=== PATIENT | male | born 1965 | race Caucasian/White ===

== ENCOUNTER 2021-09-11 07:42 | Outpatient (CLI) | payer OTHER, SELFPAY ==
--- NOTE | 2021-09-11 08:00 | CRLHL7_ITS ---
For Patients: As a result of the Century Cures Act, medical imaging exams and procedure reports are released immediately into your electronic medical record. You may view this report before your referring provider. If you have questions, please contact your health care provider. Indication: Cancer follow-up Technique: Post contrast CT chest. 75 cc Isovue 370 intravenous contrast. Please note that all CT scans at this facility use dose modulation, iterative reconstruction, and/or weight-based dosing when appropriate to reduce radiation dose to as low as reasonably achievable. Comparison: 06/11/2021, 12/05/2020, 06/25/2019 Findings: Increased parenchymal densities within the left lung base containing a few air bronchograms which obscure the underlying nodular densities seen previously. Postop changes right hemithorax. Stable appearance of the mediastinum with upper limits normal mediastinal and bilateral hilar lymph nodes. Calcified granulomas in the spleen. Simple cyst left kidney. No fracture. Visualized thyroid normal. Impression: Increased ground-glass/consolidative densities within the left lung base which obscures the previously noted nodules, possibly representing post therapy change. Stable upper limits normal/mildly prominent mediastinal/bilateral hilar lymph nodes. Please note that all CT scans at this facility use dose modulation, iterative reconstruction, and/or weight-based dosing when appropriate to reduce radiation dose to as low as reasonably achievable. Dictated by Haim Olivarez MD @ 09/11/2021 1:20:42 PM (Electronically Signed)
== END 2021-09-11 07:43 | disposition home or self-care (01) ==
LOC: CT 07:43
PROVIDERS: PCP Family Medicine; Visit Provider Internal Medicine Hematology & Oncology
DX: C34.11 Malignant neoplasm of upper lobe, right bronchus or lung (principal)
CPT/HCPCS: 71260; 80053; 85025; Q9967

== ENCOUNTER 2021-09-16 13:42 | Outpatient (RCR) | payer OTHER, SELFPAY ==
--- NOTE | 2021-09-29 12:42 | ONC.NURNOTE ---
PA request sent from [facility] global technical writer unable to complete on covermymeds and called the # provided at [place] [phone] global technical writer was told that a PA is in place through 09/18/22 and no further action is needed
== END 2021-09-27 23:59 | disposition home or self-care (01) ==
LOC: CCIC 13:42
PROVIDERS: PCP Family Medicine; Visit Provider Internal Medicine Hematology & Oncology
DX: C34.90 Malignant neoplasm of unspecified part of unspecified bronchus or lung (principal); R06.00 Dyspnea, unspecified; K76.0 Fatty (change of) liver, not elsewhere classified; E66.9 Obesity, unspecified
CPT/HCPCS: 99213; 99215

== ENCOUNTER 2021-12-10 12:18 | Outpatient (CLI) | payer OTHER, SELFPAY ==
--- NOTE | 2021-12-10 15:30 | CRLHL7_ITS ---
For Patients: As a result of the Century Cures Act, medical imaging exams and procedure reports are released immediately into your electronic medical record. You may view this report before your referring provider. If you have questions, please contact your health care provider. CLINICAL HISTORY: Right-sided lung cancer status post right lower lobectomy. TECHNIQUE: Following IV injection of 33-nzcmxs-4-deoxyglucose (FDG) and a standard uptake period of approximately 60 minutes, a non-contrast CT scan followed by a PET scan were acquired along the length of the body from the mid portion of the head to the mid thighs. The non-contrast CT was used for anatomic localization and photon attenuation correction of the PET scan. Blood Glucose Level (mg/dL): 98 FDG Dose (mCi): 11.9 COMPARISON: Chest CT scan dated 11 June 2021. PET-CT scans dated 29 May 2020 and 06 March 2020. FINDINGS: Head/Neck: No abnormal activity identified in the head and neck. Chest: No mediastinal or hilar adenopathy. No axillary adenopathy. The lungs show right lower lobectomy changes. Irregular airspace opacity in the midportion of the left lower lobe and the lingula measures approximately 6.0 x 4.4 cm and shows increased density compared to the previous CT scan, SUV max 2.8. No other focal pulmonary opacities. No pneumothorax. Abdomen/Pelvis: No focal abnormalities identified in the visualized portions of the liver, spleen, pancreas, adrenal glands, and kidneys. No hydronephrosis. The GI tract is incompletely distended but shows no gross abnormalities. No retroperitoneal, pelvic sidewall, or mesenteric adenopathy. Mild atherosclerotic vascular calcifications. Bones: No abnormal skeletal activity identified. IMPRESSION: 1. Airspace opacity in the left lower lobe and lingula shows increasing density since the previous CT scan and may represent a lung cancer. 2. No metastatic disease identified. Dictated by German Nam MD @ 12/18/2021 3:57:10 PM (Electronically Signed)
== END 2021-12-10 12:19 | disposition home or self-care (01) ==
PROVIDERS: PCP Family Medicine; Visit Provider Internal Medicine Hematology & Oncology
DX: C34.11 Malignant neoplasm of upper lobe, right bronchus or lung (principal)
CPT/HCPCS: 78815; A9552

== ENCOUNTER 2022-03-26 07:49 | Outpatient (CLI) | payer OTHER, SELFPAY ==
--- NOTE | 2022-03-26 08:00 | CRLHL7_ITS ---
For Patients: As a result of the Century Cures Act, medical imaging exams and procedure reports are released immediately into your electronic medical record. You may view this report before your referring provider. If you have questions, please contact your health care provider. INDICATION: Lung cancer. Right lower lobectomy. Follow-up. TECHNIQUE: Contrast-enhanced chest CT. 95 cc nonionic Isovue-370 administered. COMPARISON: Chest CT September 11, 2021. Correlation is made with a PET/CT scan December 10, 2021. FINDINGS: When compared to the prior chest CT September 11, 2021 the consolidative infiltrates or atelectasis within the left lower lobe of the lung are less dense but not entirely absent and may in fact be post treatment in nature versus a slowly resolving infectious or inflammatory process. No mass lesions nodule within the left lung. Postsurgical change from a right lower lobectomy and right hemithoracic lymphadenectomy with associated volume loss and pleural thickening. No evidence for recurrent or metastatic disease. No lymphadenopathy. Normal caliber thoracic aorta. Coronary artery calcification. Normal adrenal glands. No splenomegaly. The included skeleton is negative for lytic or blastic metastatic disease. IMPRESSION: 1. Postsurgical change from a right lower lobectomy and right thoracic lymphadenectomy with associated volume loss and chronic pleural thickening. 2. Partial but incomplete clearing of a left lower lobe infiltrate or atelectasis. This may be on the basis of post treatment type change. 3. Minimal coronary artery calcification. Please note that all CT scans at this facility use dose modulation, iterative reconstruction, and/or weight-based dosing when appropriate to reduce radiation dose to as low as reasonably achievable. Dictated by Jimmie Vicente MD @ 03/26/2022 10:04:47 AM (Electronically Signed)
[2022-03-26 08:14] LABS: Basophils Absolute Auto 0.02 K/uL (0.00-0.30); Basophils Percent Auto 0.3 % (0.0-3.0); Eosinophils Absolute Auto 0.09 K/uL (0.00-0.50); Eosinophils Percent Auto 1.5 % (0.0-7.0); Hematocrit 45.2 % (37.0-53.0); Hemoglobin* 15.6 gm/dL (13.5-17.5); Immature Granulocytes Abs Auto 0.01 K/uL (0.00-0.30); Immature Granulocytes Pct Auto 0.2 %; Mean Corpuscular HGB Conc 35 gm/dL (32-36); Mean Corpuscular Hemoglobin 33 pg (26-34); Mean Corpuscular Volume 94 fL (80-100); Monocytes Percent Auto 9.7 % (0.0-11.0); Neutrophils Absolute Auto 4.42 K/uL (1.7-7.0); Neutrophils Percent Auto 71.3 % (42.0-72.0); Platelet Count* 227 K/uL (140-440); RDW Coefficient of Variation % 12.5 % (11.5-15.5); Red Blood Count 4.79 m/uL (4.30-5.90); White Blood Count* 6.19 K/uL (4.50-11.00)
[2022-03-26 08:16] LABS: Slide Review Reflex No
[2022-03-26 08:31] LABS: Albumin* 4.2 g/dL (3.3-5.0); Chloride* 101 mmol/L (96-114); Sodium* 136 mmol/L (135-149)
[2022-03-26 08:32] LABS: Potassium* 3.8 mmol/L (3.6-5.1)
[2022-03-26 08:34] LABS: Alanine Aminotransferase* 20 U/L (4-50); Alkaline Phosphatase* 79 U/L (40-150); Aspartate Amino Transferase* 26 U/L (12-35); Blood Urea Nitrogen* 15 mg/dL (7-30); Carbon Dioxide* 29 mmol/L (20-32); Creatinine* 0.9 mg/dL (0.5-1.5); Estimated Glomerular Filt Rate 99 ml/min; Glucose* 118 mg/dL (60-115)
== END 2022-03-26 07:50 | disposition home or self-care (01) ==
LOC: CT 07:49
PROVIDERS: PCP Family Medicine; Visit Provider Internal Medicine Hematology & Oncology
DX: C34.90 Malignant neoplasm of unspecified part of unspecified bronchus or lung (principal); I25.10 Atherosclerotic heart disease of native coronary artery without angina pectoris
CPT/HCPCS: 36415; 71260; 80053; 85025; Q9967

== ENCOUNTER 2022-04-01 09:00 | Outpatient (RCR) | payer OTHER, SELFPAY ==
[2021-12-23 09:39] LABS: Basophils Absolute Auto 0.01 K/uL (0.00-0.30); Basophils Percent Auto 0.1 % (0.0-3.0); Eosinophils Absolute Auto 0.11 K/uL (0.00-0.50); Eosinophils Percent Auto 1.4 % (0.0-7.0); Hematocrit 45.2 % (37.0-53.0); Hemoglobin* 15.8 gm/dL (13.5-17.5); Immature Granulocytes Abs Auto 0.01 K/uL (0.00-0.30); Lymphocytes Percent Auto 11.2 % (20-44); Mean Corpuscular HGB Conc 35 gm/dL (32-36); Mean Corpuscular Hemoglobin 33 pg (26-34); Mean Corpuscular Volume 94 fL (80-100); Monocytes Percent Auto 9.6 % (0.0-11.0); Neutrophils Percent Auto 77.6 % (42.0-72.0); Platelet Count* 224 K/uL (140-440); RDW Coefficient of Variation % 12.7 % (11.5-15.5); Red Blood Count 4.83 m/uL (4.30-5.90); White Blood Count* 8.02 K/uL (4.50-11.00)
[2021-12-23 09:48] LABS: Slide Review Reflex No
[2021-12-23 09:53] LABS: Albumin* 4.5 g/dL (3.3-5.0); Chloride* 103 mmol/L (96-114); Sodium* 139 mmol/L (135-149)
[2021-12-23 09:54] LABS: Potassium* 3.6 mmol/L (3.6-5.1)
[2021-12-23 09:56] LABS: Alkaline Phosphatase* 99 U/L (40-150); Aspartate Amino Transferase* 24 U/L (12-35); Bilirubin Total* 0.7 mg/dL (0.1-1.5); Carbon Dioxide* 26 mmol/L (20-32); Creatinine* 0.9 mg/dL (0.5-1.5); Estimated Glomerular Filt Rate 99 ml/min; Total Protein* 7.1 g/dL (6.0-8.3)
[2021-12-23 09:57] LABS: Alanine Aminotransferase* 21 U/L (4-50); Blood Urea Nitrogen* 12 mg/dL (7-30); Calcium* 9.3 mg/dL (8.4-10.6); Glucose* 116 mg/dL (60-115)
--- NOTE | 2021-12-25 12:36 | ONC.NURNOTE ---
Script for Vamsiotrif faxed to [facility].
== END 2022-06-21 23:59 | disposition home or self-care (01) ==
LOC: CCIC 09:00
PROVIDERS: Internal Medicine Hematology & Oncology; PCP Family Medicine; Referring Provider Family Medicine; Visit Provider Nurse Practitioner Family
DX: C34.91 Malignant neoplasm of unspecified part of right bronchus or lung (principal); K76.0 Fatty (change of) liver, not elsewhere classified; E66.9 Obesity, unspecified
CPT/HCPCS: 36415; 80053; 85025; 99212; 99213; 99214

== ENCOUNTER 2022-05-03 09:07 | Outpatient (CLI) | payer OTHER, SELFPAY ==
--- NOTE | 2022-05-03 10:35 | W.ANESCHARGE ---
Anesthesia Charges Start Date/Time Anesthesia Start Date: 05/03/22 Anesthesia Start Time: 10:10 Stop Date/Time Anesthesia Stop Date: 05/03/22 Anesthesia Stop Time: 10:33
--- NOTE | 2022-05-03 10:39 | W.ANESCHARGE ---
Anesthesia Charges Start Date/Time Anesthesia Start Date: 05/03/22 Anesthesia Start Time: 10:10 Stop Date/Time Anesthesia Stop Date: 05/03/22 Anesthesia Stop Time: 10:33
== END 2022-05-03 09:08 | disposition home or self-care (01) ==
LOC: OP CLINIC 09:07
PROVIDERS: PCP Family Medicine; Visit Provider Internal Medicine Gastroenterology
DX: Z12.11 Encounter for screening for malignant neoplasm of colon (principal); Z86.010 Personal history of colon polyps
CPT/HCPCS: 00812; 45378; J2704

== ENCOUNTER 2022-08-30 12:11 | Outpatient (CLI) | payer OTHER, SELFPAY | END 2022-08-30 12:12 | disposition home or self-care (01) | LOC: RAD 12:12 | PROVIDERS: PCP Family Medicine; Visit Provider Internal Medicine Hematology & Oncology | DX: C34.90 Malignant neoplasm of unspecified part of unspecified bronchus or lung (principal) | CPT/HCPCS: 93306 ==

== ENCOUNTER 2022-11-11 14:01 | Outpatient (CLI) | payer OTHER, SELFPAY ==
--- NOTE | 2022-11-11 14:45 | CRLHL7_ITS ---
For Patients: As a result of the 21st Century Cures Act, medical imaging exams and procedure reports are released immediately into your electronic medical record. You may view this report before your referring provider. If you have questions, please contact your health care provider. EXAM: PET-CT SKULL BASE TO THIGH CLINICAL INFORMATION: 57-yo male with metastatic lung cancer. Prior right middle lobectomy (2012 and right lower lobectomy these 1008). Prior radiation therapy completed 08/11/2022. On Osimertinib. Patient is referred for further characterization. TECHNIQUE: Radiopharmaceutical: 10.7 mCi of 18F-FDG Intravenous injection site: LAC Uptake time: 60 minutes Blood glucose level at the time of injection: 84 mg/dL Field of view: Skull base to mid-thighs CT protocol: The low-dose, free-breathing, noncontrast CT performed as part of this study is designed for the purposes of attenuation correction and lesion localization, and it is neither sufficient, nor it should be substituted for diagnostic purposes. COMPARISON: PET-CT 07/08/2022. CT chest 03/26/2022. FINDINGS: Physiologic background liver standardized uptake value (SUV mean and SUV max) reported for comparison between PET studies: 3.5 and 5.2. Visualized head and neck: Physiologic uptake in the visualized portions of the brain. Retention cyst/polyp left maxillary sinus. Head and neck lymph nodes: Decreased uptake in a previously avid left level 3 lymph node. Mild uptake within nonenlarged bilateral cervical chain lymph nodes is nonspecific, possibly reactive/inflammatory. For example left level 2 lymph node, SUV max 2.2. Left level 3 lymph SUV max 1.8. Previously 4.1. Lungs: Prior right chest thoracotomy with right middle lobe and right lower lobectomy. No abnormal right lung uptake. Similar left lower lobe post treatment changes with a residual bandlike parenchymal opacity in the posterolateral left base and mild uptake, SUV max 2.8 (fused image 116). Previously 3.8. New adjacent nodular opacities anterior left upper lobe with very mild uptake. For example: Anterior left upper lobe opacity, 0.8 cm, SUV max 1.8 (fused image 84). Adjacent nodular opacity, 0.6 cm, SUV max 1.6. Nonspecific, potentially inflammatory. Attention on follow-up. Thoracic lymph nodes: Variable mild uptake within nonenlarged mediastinal lymph nodes. Increased uptake in a small left posterior perihilar lymph node and nonenlarged bilateral axillary lymph nodes. For example: Left posterior perihilar jennifer uptake, SUV max 4.8. Previously 3.9. Right axillary lymph node, 0.8 cm short axis, SUV max 3.5. Previously 1.5. Left axillary lymph node, 0.7 cm short axis, SUV max 3.2. Previously 2.3. Other chest findings: Scattered coronary vascular calcifications. Hepatobiliary: No abnormal uptake. Spleen/pancreas/adrenal glands: No abnormal uptake. No splenomegaly. Benign splenic calcifications. Kidneys and bladder: No abnormal uptake or obstruction. Partially distended bladder. Bowel and peritoneum: No suspicious gastric or proximal small bowel uptake. Areas of uptake in relatively decompressed distal small bowel and throughout the length of the colon including the lower anal canal demonstrate no obvious noncontrast CT abnormality. Nonspecific, possibly reactive/inflammatory, physiologic or related to medication use (i.e. Metformin). Mild colonic diverticulosis. Pelvic organs: Similar mild prostate enlargement. No abnormal uptake. Abdominopelvic lymph nodes: No new hypermetabolic abdominopelvic lymph nodes. Musculoskeletal, soft tissues, skin: No new or suspicious tracer avid osseous lesions. Decreased uptake and mild sclerosis at sites of previously avid skeletal lesions involving the left anterior 1st and lateral 2nd rib, posterior spinous process of T12 and right L5 superior articular facet. For example: Left anterior 1st rib uptake, SUV max 2.8. Previously 9.5. Posterior T12 spinous process uptake, SUV max 2.4. Previously 2.4. Right L5 articular facet, SUV max 2.3. Previously 4.8. Other: Degenerative type uptake within the shoulders and spine.Scattered aortoiliac atherosclerotic vascular calcifications. Small fat containing umbilical hernia. IMPRESSION: 1. Prior hs thoracotomy with right middle lobe and right lobe upper lobectomy. No suspicious right lung uptake. 2. Post treatment changes of the left lung with similar bandlike parenchymal opacity in the posterior lateral left lower lobe with mildly decreased uptake. New adjacent nodular opacities anterior left apex with very mild uptake are nonspecific, possibly inflammatory. Attention on follow-up. 3. Decreased uptake at sites of previously evident skeletal metastases involving the left 1st and 2nd rib, posterior spinous process of T12 and superior articular facet of L5. No new aggressive, lytic or expansile osseous lesions with uptake. 4. Variable uptake within nonenlarged mediastinal lymph nodes with mildly increased left posterior perihilar uptake and bilateral axillary uptake considered nonspecific, possibly reactive/inflammatory. Attention on follow-up. 5. No distant sites of tracer avid disease in the neck, solid organs of the upper abdomen or abdominopelvic lymph nodes. 6. Other nonacute findings as detailed in the body of the report. Dictated by Jj Young MD @ 11/15/2022 11:40:20 PM (Electronically Signed)
== END 2022-11-11 14:02 | disposition home or self-care (01) ==
LOC: RAD 14:01
PROVIDERS: PCP Family Medicine; Visit Provider Internal Medicine Hematology & Oncology
DX: C34.11 Malignant neoplasm of upper lobe, right bronchus or lung (principal)
CPT/HCPCS: 78815; A9552

== ENCOUNTER 2023-01-10 10:15 | Outpatient (RCR) | payer OTHER, SELFPAY ==
[2022-07-08 13:05] LABS: Basophils Absolute Auto 0.02 K/uL (0.00-0.30); Basophils Percent Auto 0.4 % (0.0-3.0); Eosinophils Absolute Auto 0.12 K/uL (0.00-0.50); Eosinophils Percent Auto 2.2 % (0.0-7.0); Hematocrit 44.9 % (37.0-53.0); Hemoglobin* 15.7 gm/dL (13.5-17.5); Immature Granulocytes Abs Auto 0.01 K/uL (0.00-0.30); Immature Granulocytes Pct Auto 0.2 %; Lymphocytes Absolute Auto 1.11 K/uL (0.90-2.90); Lymphocytes Percent Auto 20.2 % (20-44); Mean Corpuscular HGB Conc 35 gm/dL (32-36); Mean Corpuscular Hemoglobin 32 pg (26-34); Mean Corpuscular Volume 92 fL (80-100); Monocytes Percent Auto 9.1 % (0.0-11.0); Neutrophils Absolute Auto 3.73 K/uL (1.7-7.0); Neutrophils Percent Auto 67.9 % (42.0-72.0); Platelet Count* 215 K/uL (140-440); RDW Coefficient of Variation % 12.7 % (11.5-15.5); Red Blood Count 4.88 m/uL (4.30-5.90); White Blood Count* 5.49 K/uL (4.50-11.00)
[2022-07-08 13:07] LABS: Slide Review Reflex No
[2022-07-08 13:36] LABS: Chloride* 105 mmol/L (96-114)
[2022-07-08 13:37] LABS: Albumin* 4.3 g/dL (3.3-5.0); Potassium* 3.9 mmol/L (3.6-5.1); Sodium* 138 mmol/L (135-149)
[2022-07-08 13:39] LABS: Carbon Dioxide* 27 mmol/L (20-32); Creatinine* 0.8 mg/dL (0.5-1.5); Estimated Glomerular Filt Rate 102 ml/min
[2022-07-08 13:40] LABS: Alanine Aminotransferase* 21 U/L (4-50); Alkaline Phosphatase* 87 U/L (40-150); Aspartate Amino Transferase* 26 U/L (12-35); Bilirubin Total* 1.2 mg/dL (0.1-1.5); Blood Urea Nitrogen* 11 mg/dL (7-30); Glucose* 101 mg/dL (60-115); Total Protein* 7.1 g/dL (6.0-8.3)
[2022-07-18 11:13] LABS: Albumin 3.96 g/dL (3.75-5.01); Alpha 1 Globulin 0.29 g/dL (0.19-0.46); Alpha 2 Globulin 0.61 g/dL (0.48-1.05); Total Protein, Serum 6.5 g/dL (6.3-8.2)
--- NOTE | 2022-08-13 11:17 | ONC.NURNOTE ---
Addendum entered by Liliya Rico RN 08/20/22 10:55: [facility] does not have access to Tagrisso RX was sent to [facility] STEVAN cmpleted, signed by Dr Villarreal and faxed back to [facility] at [phone] [facility] is [facility] [phone] Addendum entered by Liliya Rico RN 08/17/22 16:27: [facility] back after Dr Villarreal signs Original Note: New RX received from Dr Villarreal for osimertinib 80 mg tabs, one daily disp #30 1 refill faxed to [facility] [phone] order for EKG faxed to [facility] [place]nurse scheduling at [phone]
--- NOTE | 2022-08-23 11:28 | ONC.NURNOTE ---
PA approved for Tagrisso 08/20/22-08/21/23 Jarrod CALLES# [id number] MF
--- NOTE | 2022-08-23 12:07 | ONC.NURNOTE ---
Re Tagrisso, and drug interactions Kwasi contacted his PCP about cardiac interactions between Tagrisso and Effexor patient will be tapering off the effexor over the next week per PCP recommendation he is going to be monitored by PCP after stopping effexor Copay for Tagrisso is $30/month Discussed administration plan to order drug after labs/Echo/EKG reviewed by Dr Villarreal target start date is 09/06/22 will need labs/follow up appts made once he starts Tagrisso
[2022-08-30 12:45] LABS: Basophils Absolute Auto 0.01 K/uL (0.00-0.30); Basophils Percent Auto 0.2 % (0.0-3.0); Eosinophils Absolute Auto 0.15 K/uL (0.00-0.50); Eosinophils Percent Auto 3.2 % (0.0-7.0); Hematocrit 44.2 % (37.0-53.0); Hemoglobin* 15.5 gm/dL (13.5-17.5); Immature Granulocytes Abs Auto 0.01 K/uL (0.00-0.30); Immature Granulocytes Pct Auto 0.2 %; Lymphocytes Absolute Auto 1.04 K/uL (0.90-2.90); Lymphocytes Percent Auto 21.9 % (20-44); Mean Corpuscular HGB Conc 35 gm/dL (32-36); Mean Corpuscular Hemoglobin 32 pg (26-34); Mean Corpuscular Volume 92 fL (80-100); Monocytes Percent Auto 10.7 % (0.0-11.0); Neutrophils Absolute Auto 3.03 K/uL (1.7-7.0); Neutrophils Percent Auto 63.8 % (42.0-72.0); Platelet Count* 196 K/uL (140-440); RDW Coefficient of Variation % 12.7 % (11.5-15.5); Red Blood Count 4.79 m/uL (4.30-5.90); White Blood Count* 4.75 K/uL (4.50-11.00)
[2022-08-30 12:48] LABS: Slide Review Reflex No
[2022-08-30 12:58] LABS: Albumin* 4.3 g/dL (3.3-5.0); Chloride* 103 mmol/L (96-114)
[2022-08-30 12:59] LABS: Potassium* 3.7 mmol/L (3.6-5.1); Sodium* 138 mmol/L (135-149)
[2022-08-30 13:01] LABS: Alkaline Phosphatase* 96 U/L (40-150); Aspartate Amino Transferase* 24 U/L (12-35); Bilirubin Total* 0.8 mg/dL (0.1-1.5); Blood Urea Nitrogen* 13 mg/dL (7-30); Carbon Dioxide* 26 mmol/L (20-32); Creatinine* 0.8 mg/dL (0.5-1.5); Est. Creatinine Clearance* 96.19; Estimated Glomerular Filt Rate 102 ml/min; Total Protein* 7.2 g/dL (6.0-8.3)
[2022-08-30 13:02] LABS: Alanine Aminotransferase* 21 U/L (4-50); Calcium* 9.2 mg/dL (8.4-10.6); Glucose* 114 mg/dL (60-115)
--- NOTE | 2022-09-08 11:02 | ONC.NURNOTE ---
Addendum entered by Liliya Rico RN 09/16/22 11:57: Follow up Tagrisso: reports 3-4 mouth sores that have developed over the past 3 days- he was using an Oral B oral rinse- data analyst report writer suggested that he stop the rinse (which was not helping) and use either baking soda or salt ( pinch -1/4 tsp) dissolved in 8 oz glass of water eating and drinking well fatigue more noticeable since starting Tagrisso arthralgias in the back, bilat hips,bilat elbows and knees have improved mary was using Tylenol and Ibuprofen alternating doses throughout the day to manage arthralgias until yesterday joint pain has improved and he no longer needs to medicate denies frequent or loose stool denies rash or change in breathing Original Note: New start Tagrisso follow up: Mary started once daily TAgrisso, taking at 08 with breakfast reports more fatigue as only notable symptom denies any loose stools, or change in breathing report some arthalgias- patient says may be related to walk from yesterday Mary stopped his effexor about 10 days after noted that there is a major drug interaction between tagrisso and effexor- PCP monitoring patient, but Mary states he is doing well since effexor stopped Mary has questions about monitoring L5 on next imaging- he will discuss with Dr Villarreal at next appt
--- NOTE | 2022-09-21 15:24 | ONC.NURNOTE ---
Addendum entered by Sabi Nova RN 09/24/22 14:05: Left message on patient's voicemail to call and let us know how his mouth is doing. Original Note: Follow up of mouth sores- reports that it is a little better with the magic mouth wash noted redness like a cold sore, inside of upper lip, and back corner of his mouth eating and drinking with some discomfort Plan to reassess on - so can follow up with Dr Villarreal- in case any dose adjustments are required until his mouth heals
[2022-10-05 08:50] LABS: Basophils Absolute Auto 0.01 K/uL (0.00-0.30); Basophils Percent Auto 0.2 % (0.0-3.0); Eosinophils Absolute Auto 0.14 K/uL (0.00-0.50); Hematocrit 44.3 % (37.0-53.0); Hemoglobin* 15.1 gm/dL (13.5-17.5); Immature Granulocytes Abs Auto 0.01 K/uL (0.00-0.30); Immature Granulocytes Pct Auto 0.2 %; Lymphocytes Percent Auto 19.7 % (20-44); Mean Corpuscular HGB Conc 34 gm/dL (32-36); Mean Corpuscular Hemoglobin 32 pg (26-34); Mean Corpuscular Volume 94 fL (80-100); Monocytes Percent Auto 9.9 % (0.0-11.0); Platelet Count* 171 K/uL (140-440); RDW Coefficient of Variation % 12.7 % (11.5-15.5); Red Blood Count 4.74 m/uL (4.30-5.90); White Blood Count* 4.63 K/uL (4.50-11.00)
[2022-10-05 08:54] LABS: Slide Review Reflex No
[2022-10-05 09:01] LABS: Albumin* 4.3 g/dL (3.3-5.0)
[2022-10-05 09:02] LABS: Chloride* 104 mmol/L (96-114); Potassium* 3.6 mmol/L (3.6-5.1); Sodium* 138 mmol/L (135-149)
[2022-10-05 09:04] LABS: Bilirubin Total* 0.8 mg/dL (0.1-1.5); Creatinine* 1.2 mg/dL (0.5-1.5); Est. Creatinine Clearance* 64.13; Estimated Glomerular Filt Rate 70 ml/min
[2022-10-05 09:05] LABS: Alanine Aminotransferase* 18 U/L (4-50); Alkaline Phosphatase* 78 U/L (40-150); Aspartate Amino Transferase* 24 U/L (12-35); Blood Urea Nitrogen* 12 mg/dL (7-30); Calcium* 9.1 mg/dL (8.4-10.6); Carbon Dioxide* 28 mmol/L (20-32); Glucose* 130 mg/dL (60-115); Total Protein* 6.9 g/dL (6.0-8.3)
[2022-10-05 10:16] VITALS: BP 148/88
--- NOTE | 2022-10-13 11:43 | ONC.NURNOTE ---
Follow up call on Tagrisso and side effects Mouth sores have resolved joint and muscle aches have improved since dosing every other day although the muscle aches continue, Kwasi is staying active and is comfortable with his current status
--- NOTE | 2022-10-26 11:32 | ONC.NURNOTE ---
Addendum entered by Liliya Rico RN 10/27/22 13:25: PA needed to be resubmitted verbally with [employer]- Covermymeds did not recognize that a new PA was needed for 40ng dose PA approved for 10/27/22-10/28/23 Original Note: PA completed for 40 mg dose of Tagrisso via covermymeds on 10/25/22
[2022-11-11 14:35] LABS: Basophils Absolute Auto 0.01 K/uL (0.00-0.30); Basophils Percent Auto 0.2 % (0.0-3.0); Eosinophils Percent Auto 1.8 % (0.0-7.0); Hematocrit 44.1 % (37.0-53.0); Hemoglobin* 15.2 gm/dL (13.5-17.5); Lymphocytes Percent Auto 18.5 % (20-44); Mean Corpuscular HGB Conc 35 gm/dL (32-36); Mean Corpuscular Hemoglobin 32 pg (26-34); Mean Corpuscular Volume 92 fL (80-100); Monocytes Percent Auto 9.9 % (0.0-11.0); Neutrophils Percent Auto 69.6 % (42.0-72.0); Platelet Count* 123 K/uL (140-440); RDW Coefficient of Variation % 12.6 % (11.5-15.5); Red Blood Count 4.79 m/uL (4.30-5.90); White Blood Count* 5.46 K/uL (4.50-11.00)
[2022-11-11 14:57] LABS: Chloride* 98 mmol/L (96-114)
[2022-11-11 14:58] LABS: Albumin* 4.3 g/dL (3.3-5.0); Potassium* 3.6 mmol/L (3.6-5.1); Sodium* 131 mmol/L (135-149)
[2022-11-11 15:00] LABS: Carbon Dioxide* 25 mmol/L (20-32); Est. Creatinine Clearance* 76.95; Estimated Glomerular Filt Rate 87 ml/min
[2022-11-11 15:01] LABS: Alanine Aminotransferase* 21 U/L (4-50); Alkaline Phosphatase* 82 U/L (40-150); Anion Gap 8 mEq/L (7-15); Aspartate Amino Transferase* 31 U/L (12-35); Bilirubin Total* 1.1 mg/dL (0.1-1.5); Blood Urea Nitrogen* 12 mg/dL (7-30); Calcium* 9.4 mg/dL (8.4-10.6); Glucose* 87 mg/dL (60-115); Total Protein* 7.3 g/dL (6.0-8.3)
[2022-11-11 15:42] LABS: Slide Review Reflex Yes
[2022-11-11 15:43] LABS: Slide Review Acceptable Review (Acceptable)
--- NOTE | 2022-11-24 14:33 | ONC.NURNOTE ---
MINDI Carekeyshawn- PA needed for dose change from 40 mg alternating with 80mg every other day Gregoryo
--- NOTE | 2022-11-25 12:13 | ONC.NURNOTE ---
Addendum entered by Liliya Rico RN 11/29/22 12:58: alternate dosing schedule reviewed with Dr Villarreal and Kwasi plan is to take 80mg tab 5 days a week-with days off each week New RX and PA faxed to [facility] and Jarrod Vlilalpando agrees with this plan and states understanding to plan for dosing [address] Villarreal considering to try to escalate the dose to 6 tabs/ week in 1-2 weeks and then maybe 7 tabs/week Appts next week with Dr Villarreal Original Note: Per Shanti Johns has QL of 30 tabs for 30 days, at both the 40mg and 80 mg dose #45 tabs per 30 is denied by insurance an appeal letter will be faxed to office to complete
[2023-01-10 12:31] LABS: Basophils Absolute Auto 0.01 K/uL (0.00-0.30); Basophils Percent Auto 0.2 % (0.0-3.0); Eosinophils Absolute Auto 0.08 K/uL (0.00-0.50); Eosinophils Percent Auto 1.7 % (0.0-7.0); Hematocrit 42.8 % (37.0-53.0); Hemoglobin* 14.8 gm/dL (13.5-17.5); Lymphocytes Absolute Auto 0.96 K/uL (0.90-2.90); Lymphocytes Percent Auto 20.3 % (20-44); Mean Corpuscular HGB Conc 35 gm/dL (32-36); Mean Corpuscular Hemoglobin 32 pg (26-34); Mean Corpuscular Volume 93 fL (80-100); Monocytes Percent Auto 10.6 % (0.0-11.0); Neutrophils Absolute Auto 3.18 K/uL (1.7-7.0); Neutrophils Percent Auto 67.2 % (42.0-72.0); Platelet Count* 149 K/uL (140-440); Red Blood Count 4.61 m/uL (4.30-5.90); White Blood Count* 4.73 K/uL (4.50-11.00)
[2023-01-10 12:39] LABS: Slide Review Reflex No
[2023-01-10 12:46] LABS: Albumin* 4.1 g/dL (3.3-5.0); Chloride* 105 mmol/L (96-114); Sodium* 136 mmol/L (135-149)
[2023-01-10 12:48] LABS: Creatinine* 1.1 mg/dL (0.5-1.5); Est. Creatinine Clearance* 69.95; Estimated Glomerular Filt Rate 77 ml/min
[2023-01-10 12:49] LABS: Alanine Aminotransferase* 17 U/L (4-50); Alkaline Phosphatase* 77 U/L (40-150); Anion Gap 8 mEq/L (7-15); Aspartate Amino Transferase* 37 U/L (12-35); Bilirubin Total* 0.6 mg/dL (0.1-1.5); Blood Urea Nitrogen* 18 mg/dL (7-30); Calcium* 9.1 mg/dL (8.4-10.6); Carbon Dioxide* 23 mmol/L (20-32); Glucose* 118 mg/dL (60-115); Potassium* 3.8 mmol/L (3.6-5.1); Total Protein* 6.9 g/dL (6.0-8.3)
== END 2023-01-11 23:59 | disposition home or self-care (01) ==
LOC: CCIC 10:15
PROVIDERS: Clinical Nurse Specialist; Nurse Practitioner Family; Physician Assistant; PCP Family Medicine; Referring Provider Family Medicine; Visit Provider Internal Medicine Hematology & Oncology
DX: C34.91 Malignant neoplasm of unspecified part of right bronchus or lung (principal); C79.51 Secondary malignant neoplasm of bone; M54.9 Dorsalgia, unspecified; I10 Essential (primary) hypertension
CPT/HCPCS: 36415; 80053; 84165; 85025; 99212; 99213; 99214; 99215

== ENCOUNTER 2023-01-21 07:10 | Outpatient (CLI) | payer OTHER, SELFPAY ==
--- NOTE | 2023-01-21 07:30 | PE_ITS ---
[facility] [address] [facility] [address] Phone:?[phone] Fax:?[phone] Referring Physician Information: Airam Villarreal M.D. [address] [facility] [address] Phone:?[phone] Fax:?[phone] Patient:Deann Avina D.O.B:?1965 Sex:?Male Phone:?[phone] [facility] MRN:?[id number] Exam Date:?01/21/2023 EXAM: PET/CT SCAN MID-ORBITS TO PROXIMAL THIGHS CLINICAL INFORMATION: Metastatic lung carcinoma. Prior right middle lobe and right lower lobectomy. Radiation therapy completed 08/11/2022. TECHNICAL INFORMATION: Spiral acquisition of data was obtained from the mid orbits to the proximal thighs with reconstruction of 3.75 mm thick images at 3.[address] data was used for attenuation correction. PET scanning was performed through the same anatomic range 56 minutes following administration of 12.15 mCi of 18-FDG delivered intravenously. The patient's glucose at the time of the injection was 84 mg/dL. PET, CT and PET/CT fusion images are interpreted using a computer viewing workstation. Physiologic background liver standard uptake SUV mean INTERPRETATION: Head and Neck: Chest: Prior right chest thoracotomy with right middle and lower lobectomy. No right lung nodule. Stable bandlike opacity left lung base, SUV max 2.6, previously 2.8. Stable 8 mm subpleural opacity left apex image 86, SUV max 2.4, previously 1.8. Stable appearance of nonenlarged mediastinal nodes. Left posterior parahilar node SUV max 3.68, previously 4.8, image 105. Right axillary 8mm node SUV max 3.5, stable. 7 mm left axillary node SUV max 2.6, previously 3.2. Abdomen, Pelvis and Proximal Thighs: No liver lesion is identified. The spleen, adrenal glands, pancreas, gallbladder and kidneys are unremarkable. Normal caliber abdominal aorta. No mesenteric or retroperitoneal adenopathy. No pelvic adenopathy or mass. MUSCULOSKELETAL: Relative stable sclerosis involving left anterior first and lateral second rib, SUV max first rib 2.8, previously 2.8. Stable SUV 2.4 posterior T12 spinous process. Right L5 articular facet, unchanged, SUV max 3.1. CONCLUSION: 1. Patient status post thoracotomy with right middle and right upper lobe lobectomy. No suspicious right lung uptake. 2. Post treatment changes left lung with bandlike parenchymal opacity posterior lateral left lung base. Stable nodular opacities anterior left apex, nonspecific left most likely inflammatory. Continued follow-up is suggested. 3. Stable sites of skeletal metastasis involving left first and second ribs posterior T12 spinous process, superior articular facet L5. No new osseous lesions are identified. 4. Nonenlarged mediastinal, bilateral axillary and left posterior perihilar lymph node uptake, considered nonspecific, continued follow-up is suggested. Electronically signed on 01/24/2023 10:06:00 AM by Bill Jc M.D.
== END 2023-01-21 07:11 | disposition home or self-care (01) ==
LOC: RAD 07:10
PROVIDERS: PCP Family Medicine; Visit Provider Internal Medicine Hematology & Oncology
DX: C34.11 Malignant neoplasm of upper lobe, right bronchus or lung (principal); C79.51 Secondary malignant neoplasm of bone
CPT/HCPCS: 78815; A9552

== ENCOUNTER 2023-04-28 08:00 | Outpatient (CLI) | payer OTHER, SELFPAY ==
--- NOTE | 2023-04-28 08:15 | MR_ITS ---
Patient: WELLINGTON RAMIRES Facility:?[facility] Patient ID:?[id number] Site Patient ID:?[id number]. Site :?1965 Study:?MRI-Head W/ and W/O Cont 20 CC DOATERM-04/28/2023 11:18:50 AM Ordering Physician:MAXINE HUTCHINS Final Report: INDICATION: Lung cancer TECHNIQUE: Noncontrast Sagittal T1,Axial FSE T2, Flair, DWI, post contrast axial and coronal T1W images submitted. Compared to prior study from July 27, 2022. 20 cc of dotarem gadolinium was administered intravenously. FINDINGS: Stable mild cerebral atrophy. The ventricles, sulci and gyri are of normal size, shape and contour for age and degree of atrophy. Midline structures are centrally located. No convincing evidence of suspicious intra- or extra-axial fluid collections. Stable mild patchy regions of increased T2 signal within the periventricular and subcortical white matter of both cerebral hemispheres. No regions of restricted diffusion or suspicious regions of abnormal parenchymal enhancement. IMPRESSION: 1. No radiographic evidence of acute intracranial abnormalities. 2. Stable mild cerebral atrophy. 3. Stable mild supratentorial white matter changes that are non-specific, but statistically most likely related to chronic small vessel ischemic disease. Dictated by Aj Smith MD @ 04/30/2023 7:46:33 AM Signed by:?Aj Smith MD @04/30/2023 7:46:33 AM (Electronic Signature)
--- NOTE | 2023-05-31 09:24 | W.ED.CHARTNO ---
ED Chart Note Chart Note Details Date: 05/31/23 Details: EKG dated 05/25/2023, Patient is in normal sinus rhythm, ventricular rate is 76, QT/QTC baz is 380/[address] wave changes, Assessment: QTC remained stable at 427 millisecond, patient remains in normal sinus rhythm with no acute change
== END 2023-04-28 08:01 | disposition home or self-care (01) ==
LOC: MRI 08:02
PROVIDERS: PCP Family Medicine; Visit Provider Internal Medicine Hematology & Oncology
DX: Z51.11 Encounter for antineoplastic chemotherapy (principal); G31.9 Degenerative disease of nervous system, unspecified
CPT/HCPCS: 70553; A9575

== ENCOUNTER 2023-05-26 15:02 | Outpatient (CLI) | payer OTHER, SELFPAY ==
--- NOTE | 2023-05-26 15:30 | PE_ITS ---
[facility] [address] [address] [facility] [address] Phone:?[phone] Fax:?[phone] Referring Physician Information: Airam Villarreal M.D. [address] [facility] [address] Phone:?[phone] Fax:?[phone] Patient:Deann Avina D.O.B:?1965 Sex:?Male Phone:?[phone] [facility] MRN:?[id number] Exam Date:?05/26/2023 EXAM: PET/CT SCAN MID-ORBITS TO PROXIMAL THIGHS CLINICAL INFORMATION: Metastatic non-small cell lung carcinoma. Prior right middle and lower lobectomy. Radiation treatment completion left level 2 lymph node 02/15/2023. COMPARISON:?PET CT 01/21/2023. TECHNICAL INFORMATION: Spiral acquisition of data was obtained from the mid orbits to the proximal thighs with reconstruction of 3.75 mm thick images at 3.[address] data was used for attenuation correction. PET scanning was performed through the same anatomic range 53 minutes following administration of 11.03 mCi of 18-FDG delivered intravenously. The patient's glucose at the time of the injection was 115 mg/dL. PET, CT and PET/CT fusion images are interpreted using a computer viewing workstation. SUV max liver ; BMI normalization method. INTERPRETATION: Head and Neck: No abnormal radiotracer uptake. Chest: Prior right chest thoracotomy and right middle/lower lobectomy change, stable. No right lung nodule or infiltrate. Stable bandlike opacity left lung base, SUV max 1.53. Stable 8 mm subpleural opacity left apex image 87, SUV max 2.05. Left posterior parahilar node, SUV max 2.79, previously 3.68, image 107. 8 mm right axillary node 2.07, previously 3.5 and 7 mm left axillary node SUV 1.35, previously 2.6. Abdomen, Pelvis and Proximal Thighs: No liver lesion. No biliary duct dilatation. The gallbladder, pancreas, adrenal glands, spleen and kidneys are unremarkable. Normal caliber abdominal aorta with minimal atherosclerotic calcification. No pathologic mesenteric or retroperitoneal adenopathy. MUSCULOSKELETAL: Stable sclerotic appearance of anterior left first and lateral second rib, SUV max left first rib 2.0, previously 2.8.. Posterior spinous process T12, unchanged. Right L5 articular facet, 1.91, previously 3.1. CONCLUSION: 1. Left posterior perihilar lymph node, SUV max 2.79, previously 3.68. 2. Stable post right thoracotomy changes, along with stable 8 mm subpleural opacity left apex and stable bandlike opacity left base. No new lung nodule, infiltrate or pathologic adenopathy is identified. Stable 8 mm right axillary and 7 mm left axillary node. 2. Stable sclerotic osseous metastatic lesions involving left first/second ribs, posterior T12 spinous process, right superior L5 articular facet. No new osseous lesions. Electronically signed on 05/29/2023 1:02:00 PM by Bill Jc M.D.
== END 2023-05-26 15:03 | disposition home or self-care (01) ==
LOC: RAD 15:03
PROVIDERS: PCP Family Medicine; Visit Provider Internal Medicine Hematology & Oncology
DX: C34.11 Malignant neoplasm of upper lobe, right bronchus or lung (principal); M89.9 Disorder of bone, unspecified
CPT/HCPCS: 78815; A9552

== ENCOUNTER 2023-07-07 13:00 | Outpatient (RCR) | payer OTHER, SELFPAY ==
--- NOTE | 2023-02-07 15:46 | ONC.NURNOTE ---
Instructed to hold tagrisso for the week of radiation treatments dates are 02/08, 02/10, and 02/15 Tagrisso will be held 02/08 and restart on 02/16 patient states understanding
[2023-02-07 16:16] LABS: Basophils Absolute Auto 0.02 K/uL (0.00-0.30); Basophils Percent Auto 0.4 % (0.0-3.0); Eosinophils Percent Auto 1.8 % (0.0-7.0); Hematocrit 47.3 % (37.0-53.0); Hemoglobin* 16.2 gm/dL (13.5-17.5); Immature Granulocytes Abs Auto 0.01 K/uL (0.00-0.30); Immature Granulocytes Pct Auto 0.2 %; Lymphocytes Absolute Auto 1.28 K/uL (0.90-2.90); Lymphocytes Percent Auto 23.5 % (20-44); Mean Corpuscular HGB Conc 34 gm/dL (32-36); Mean Corpuscular Hemoglobin 32 pg (26-34); Mean Corpuscular Volume 93 fL (80-100); Monocytes Percent Auto 10.5 % (0.0-11.0); Neutrophils Absolute Auto 3.47 K/uL (1.7-7.0); Neutrophils Percent Auto 63.6 % (42.0-72.0); Platelet Count* 172 K/uL (140-440); RDW Coefficient of Variation % 12.7 % (11.5-15.5); Red Blood Count 5.08 m/uL (4.30-5.90); White Blood Count* 5.45 K/uL (4.50-11.00)
[2023-02-07 16:25] LABS: Slide Review Reflex No
[2023-02-07 16:30] LABS: Albumin* 4.6 g/dL (3.3-5.0); Chloride* 103 mmol/L (96-114); Potassium* 3.8 mmol/L (3.6-5.1); Sodium* 138 mmol/L (135-149)
[2023-02-07 16:32] LABS: Creatinine* 1.1 mg/dL (0.5-1.5); Estimated Glomerular Filt Rate 77 ml/min
[2023-02-07 16:33] LABS: Alanine Aminotransferase* 17 U/L (4-50); Alkaline Phosphatase* 82 U/L (40-150); Anion Gap 9 mEq/L (7-15); Aspartate Amino Transferase* 25 U/L (12-35); Bilirubin Total* 0.8 mg/dL (0.1-1.5); Blood Urea Nitrogen* 15 mg/dL (7-30); Carbon Dioxide* 26 mmol/L (20-32); Glucose* 78 mg/dL (60-115); Total Protein* 7.6 g/dL (6.0-8.3)
[2023-02-07 16:34] LABS: Calcium* 9.8 mg/dL (8.4-10.6)
--- NOTE | 2023-02-24 12:03 | URNOTE ---
Neulasta (J2506) has been denied as it does not meet criteria. See scanned document. Pemetresed (J9323), Carboplatin (J9045),Palonosetron (J2469), Fosaprepitant (J1453) and Dexamethasone (J1100) and Cyanocobalamin (J3420) do not require prior authorization. Auth #[id number]
--- NOTE | 2023-02-25 14:33 | ONC.NURNOTE ---
Patients orders were on for March 02, but not scheduled for chemotherapy. Clinic nurse notes that a call was made to patient. Shower Attendant called patient and he notes that he would like to start next week when he is seen. Patient scheduled and pharmacy made aware.
--- NOTE | 2023-03-01 09:34 | W.ED.CHARTNO ---
ED Chart Note Chart Note Details Date: 03/01/23 Details: EKG is reviewed from 02/19/2023, 02/24/2023, compared with previous EKG from 08/30/2022 Sinus rhythm with occasional PACs, and a pattern of bigeminy is noted. No acute ST wave changes. Ventricular rate is 74, QTC QT remains stable. Assessment: Abnormal EKG with PACs in a bigeminal pattern, otherwise normal indices. Significance of which is unknown
[2023-03-02 11:08] LABS: Hematocrit 42.3 % (37.0-53.0); Hemoglobin* 14.6 gm/dL (13.5-17.5); Lymphocytes Percent Auto 9.4 % (20-44); Mean Corpuscular HGB Conc 35 gm/dL (32-36); Mean Corpuscular Hemoglobin 32 pg (26-34); Mean Corpuscular Volume 93 fL (80-100); Neutrophils Percent Auto 79.5 % (42.0-72.0); Platelet Count* 139 K/uL (140-440); Red Blood Count 4.53 m/uL (4.30-5.90); White Blood Count* 6.06 K/uL (4.50-11.00)
[2023-03-02 11:09] LABS: Basophils Absolute Auto 0.01 K/uL (0.00-0.30); Basophils Percent Auto 0.2 % (0.0-3.0); Eosinophils Absolute Auto 0.02 K/uL (0.00-0.50); Eosinophils Percent Auto 0.3 % (0.0-7.0); Monocytes Percent Auto 10.6 % (0.0-11.0)
[2023-03-02 11:19] LABS: Slide Review Reflex No
[2023-03-02 11:23] LABS: Albumin* 4.1 g/dL (3.3-5.0); Chloride* 101 mmol/L (96-114)
[2023-03-02 11:24] LABS: Potassium* 3.5 mmol/L (3.6-5.1); Sodium* 136 mmol/L (135-149)
[2023-03-02 11:26] LABS: Alanine Aminotransferase* 22 U/L (4-50); Alkaline Phosphatase* 86 U/L (40-150); Anion Gap 9 mEq/L (7-15); Aspartate Amino Transferase* 27 U/L (12-35); Bilirubin Total* 0.4 mg/dL (0.1-1.5); Blood Urea Nitrogen* 11 mg/dL (7-30); Carbon Dioxide* 26 mmol/L (20-32); Estimated Glomerular Filt Rate 87 ml/min; Glucose* 111 mg/dL (60-115); Total Protein* 6.8 g/dL (6.0-8.3)
[2023-03-02] MEDS: CYANOCOBALAMIN 1,000 MCG/ML inj 1000 MCG IM (11:55)
--- NOTE | 2023-03-04 15:00 | ONC.NURNOTE ---
STEVAN inititated for Magic Mouthwash for [employer] via covermymeds patient states that this was covered by insurance but is no longer on a formulary due to compounded medication
--- NOTE | 2023-03-08 13:38 | ONC.NURNOTE ---
Tagrisso- per mary Long will continue with Tagrisso along with chemotherapy
[2023-03-11 12:16] LABS: Basophils Absolute Auto 0.01 K/uL (0.00-0.30); Basophils Percent Auto 0.2 % (0.0-3.0); Eosinophils Absolute Auto 0.08 K/uL (0.00-0.50); Eosinophils Percent Auto 1.3 % (0.0-7.0); Hematocrit 46.5 % (37.0-53.0); Hemoglobin* 15.7 gm/dL (13.5-17.5); Immature Granulocytes Abs Auto 0.01 K/uL (0.00-0.30); Immature Granulocytes Pct Auto 0.2 %; Lymphocytes Percent Auto 16.3 % (20-44); Mean Corpuscular HGB Conc 34 gm/dL (32-36); Mean Corpuscular Hemoglobin 32 pg (26-34); Mean Corpuscular Volume 93 fL (80-100); Monocytes Percent Auto 9.4 % (0.0-11.0); Neutrophils Percent Auto 72.6 % (42.0-72.0); Platelet Count* 190 K/uL (140-440); RDW Coefficient of Variation % 12.7 % (11.5-15.5); Red Blood Count 4.99 m/uL (4.30-5.90); White Blood Count* 6.09 K/uL (4.50-11.00)
[2023-03-11 12:21] LABS: Slide Review Reflex No
[2023-03-11 12:32] LABS: Albumin* 4.6 g/dL (3.3-5.0)
[2023-03-11 12:33] LABS: Chloride* 101 mmol/L (96-114); Sodium* 138 mmol/L (135-149)
--- NOTE | 2023-03-11 12:34 | ONC.NURNOTE ---
Kwasi and here for new chemo start teaching labs repeated today antiemetics will need to be submitted by Celeste Ny APRN today- pt aware EKG monitoring for Tagresso- Dr Villarreal wants current EKG to be reviewed by stunt performer/ with a visit Kwasi has seen cardiology many years ago thru [facility]- will look for that name reviewed contents of chemo education binder self care/calling with concerns taking home antiemetics ER if fever over 100.4 discussed possible side effects of carbo/alimta PA for magic mouthwash pending started via covermymeds last week quesstions addressed and consents signed
[2023-03-11 12:35] LABS: Anion Gap 7 mEq/L (7-15); Aspartate Amino Transferase* 30 U/L (12-35); Bilirubin Total* 0.7 mg/dL (0.1-1.5); Carbon Dioxide* 30 mmol/L (20-32); Estimated Glomerular Filt Rate 87 ml/min; Total Protein* 7.5 g/dL (6.0-8.3)
[2023-03-11 12:36] LABS: Alanine Aminotransferase* 18 U/L (4-50); Alkaline Phosphatase* 68 U/L (40-150); Blood Urea Nitrogen* 18 mg/dL (7-30); Calcium* 9.6 mg/dL (8.4-10.6); Glucose* 93 mg/dL (60-115)
[2023-03-14 08:20] VITALS: BP 129/85; PULSE 72; RESP 16; TEMP 36.6; O2SAT 95
[2023-03-14] MEDS: PALONOSETRON 0.25 MG/5 ML inj IV (09:00)
[2023-03-14] MEDS: dexAMETHasone 10 MG in 0.9 % SODIUM CHLORIDE 100 ml 100 ML 404 MG IVPB (09:00)
[2023-03-14] MEDS: FOSAPREPITANT 150 MG inj 150 MG in 0.9 % SODIUM CHLORIDE 250 ml 250 ML 510 MG IVPB (09:28)
[2023-03-14] MEDS: CARBOplatin 750 MG, TUBING SECONDARY 1 EACH in 0.9 % SODIUM CHLORIDE 250 ml 250 ML 650 MG IVPB (10:33)
[2023-03-14] MEDS: SODIUM CHLORIDE 0.9 % (FLUSH) 10 ML SYRINGE IVF (15:06)
[2023-03-14] MEDS: 0.9 % SODIUM CHLORIDE 250 ml IV (15:06)
--- NOTE | 2023-03-14 15:14 | ONC.NURNOTE ---
Tolerated first treatment well. supportive. will pharmacy picking technician meds at pharmacy today. enc to call if questions or concerns. we will call him tomorrow.
--- NOTE | 2023-03-15 12:42 | ONC.NURNOTE ---
called Kwasi. He states feeling fine. no nausea. taking po. states just a little tired today. is out taking a walk now. Enc. him to call if questions or concerns. taking compazine as suggested.
--- NOTE | 2023-03-18 14:30 | ONC.NURNOTE ---
Called [facility] on file to check PA status of Magic Mouthwash. They confirm they have an active prescription for Magic Mouthwash, that the PA has come back and they have it in stock. They are mixing it now; I updated pt.
--- NOTE | 2023-03-28 15:22 | ONC.NURNOTE ---
Magic Mouthwash PA was denied by his insurance. Kwasi has been able to fill his RX however.
--- NOTE | 2023-03-30 14:18 | ONC.NURNOTE ---
Cardiology telemed visit scanned into EMR- and reviewed by Dr Villarreal
[2023-04-01 08:43] LABS: Hematocrit 40.4 % (37.0-53.0); Hemoglobin* 13.7 gm/dL (13.5-17.5); Lymphocytes Percent Auto 26.5 % (20-44); Mean Corpuscular HGB Conc 34 gm/dL (32-36); Mean Corpuscular Hemoglobin 32 pg (26-34); Mean Corpuscular Volume 95 fL (80-100); Monocytes Percent Auto 16.8 % (0.0-11.0); Neutrophils Percent Auto 53.7 % (42.0-72.0); Platelet Count* 176 K/uL (140-440); RDW Coefficient of Variation % 13.7 % (11.5-15.5); Red Blood Count 4.26 m/uL (4.30-5.90); White Blood Count* 2.68 K/uL (4.50-11.00)
[2023-04-01 08:44] LABS: Slide Review Reflex No
[2023-04-01 08:59] LABS: Albumin* 4.3 g/dL (3.3-5.0); Chloride* 103 mmol/L (96-114)
[2023-04-01 09:00] LABS: Potassium* 3.6 mmol/L (3.6-5.1); Sodium* 138 mmol/L (135-149)
[2023-04-01 09:02] LABS: Anion Gap 7 mEq/L (7-15); Aspartate Amino Transferase* 33 U/L (12-35); Bilirubin Total* 0.6 mg/dL (0.1-1.5); Carbon Dioxide* 28 mmol/L (20-32); Est. Creatinine Clearance* 76.95; Estimated Glomerular Filt Rate 87 ml/min; Total Protein* 7.3 g/dL (6.0-8.3)
[2023-04-01 09:03] LABS: Alanine Aminotransferase* 31 U/L (4-50); Alkaline Phosphatase* 94 U/L (40-150); Blood Urea Nitrogen* 16 mg/dL (7-30); Calcium* 9.1 mg/dL (8.4-10.6); Glucose* 126 mg/dL (60-115)
--- NOTE | 2023-04-04 14:42 | ONC.NURNOTE ---
Patient's charges for 03/14/2023 edited for MM.
--- NOTE | 2023-04-06 13:44 | ONC.NURNOTE ---
PET scheduled: Patient will have PET scan on 05/26/23 at 330pm. Spoke with patient and he wrote this time down and can make it. Documentation and order was faxed to [facility].
[2023-04-12 08:06] LABS: Eosinophils Absolute Auto 0.05 K/uL (0.00-0.50); Hematocrit 39.7 % (37.0-53.0); Hemoglobin* 13.9 gm/dL (13.5-17.5); Immature Granulocytes Abs Auto 0.01 K/uL (0.00-0.30); Immature Granulocytes Pct Auto 0.2 %; Lymphocytes Percent Auto 18.8 % (20-44); Mean Corpuscular HGB Conc 35 gm/dL (32-36); Mean Corpuscular Hemoglobin 33 pg (26-34); Mean Corpuscular Volume 95 fL (80-100); Monocytes Percent Auto 14.7 % (0.0-11.0); Neutrophils Absolute Auto 3.38 K/uL (1.7-7.0); Neutrophils Percent Auto 65.3 % (42.0-72.0); Platelet Count* 174 K/uL (140-440); RDW Coefficient of Variation % 14.7 % (11.5-15.5); Red Blood Count 4.19 m/uL (4.30-5.90); White Blood Count* 5.17 K/uL (4.50-11.00)
[2023-04-12 08:11] LABS: Slide Review Reflex No
[2023-04-12 08:16] LABS: Albumin* 4.6 g/dL (3.3-5.0); Chloride* 103 mmol/L (96-114); Sodium* 138 mmol/L (135-149)
[2023-04-12 08:19] LABS: Alanine Aminotransferase* 22 U/L (4-50); Alkaline Phosphatase* 75 U/L (40-150); Anion Gap 9 mEq/L (7-15); Aspartate Amino Transferase* 30 U/L (12-35); Bilirubin Total* 0.6 mg/dL (0.1-1.5); Blood Urea Nitrogen* 14 mg/dL (7-30); Carbon Dioxide* 26 mmol/L (20-32); Est. Creatinine Clearance* 76.95; Estimated Glomerular Filt Rate 87 ml/min; Glucose* 103 mg/dL (60-115); Total Protein* 7.4 g/dL (6.0-8.3)
[2023-04-12 08:20] LABS: Calcium* 9.2 mg/dL (8.4-10.6)
[2023-04-12] MEDS: dexAMETHasone 10 MG in 0.9 % SODIUM CHLORIDE 100 ml 100 ML 400 MG IVPB (09:18)
[2023-04-12] MEDS: PALONOSETRON 0.25 MG/5 ML inj IV (09:18)
[2023-04-12] MEDS: 0.9 % SODIUM CHLORIDE 250 ml IV (09:18)
[2023-04-12] MEDS: FOSAPREPITANT 150 MG inj 150 MG in 0.9 % SODIUM CHLORIDE 250 ml 250 ML 510 MG IVPB (09:37)
[2023-04-12] MEDS: CARBOplatin 750 MG, TUBING SECONDARY 1 EACH in 0.9 % SODIUM CHLORIDE 250 ml 250 ML 650 MG IVPB (10:50)
--- NOTE | 2023-04-12 13:14 | ONC.NURNOTE ---
Addendum entered by Nadja Bucio RN 04/15/23 10:01: Patient in for injection. Left arm healed well. No redness, warmth, hardness, or soreness present. Addendum entered by Nadja Bucio RN 04/13/23 08:48: Called patient to see how his wound looks. He notes no pain, no redness, swelling is gone, denies color change. He was notifed that nursing will call Tuesday, but to call with any changes ahead of that time. Original Note: Patient here for chemotherapy. Following start of carboplatin, drug noted to have infiltrated about 50ml of drug. Medication stopped and sodium thiosulfate administered once obtained, following icing. Instructed to ice area for 15 minutes every 8 hours.
--- NOTE | 2023-04-14 14:10 | URNOTE ---
Addendum entered by Sharmaine Lakhani RN 04/29/23 13:51: Received fax re: alternate site of service, facility: [facility] Date Range: 04/28/23 to 10/06/2023. Called [facility] to confirm Udenyca ([id number]). Prior Authorization is approved by [facility] for time period of 3 months to transition to an alternative setting. Auth#[id number], date range: 04/07/2023 to 07/06/2023. Per Rep Diana Oliveira (Ref# [id number]) this calvin period is still active until 07/06/2023. Transferred to Rep Yeyo (Ref# [id number]) in medical injectables who states pt will also receive this letter to start home base or alternate site of service. Addendum entered by Nalini Vincent RN 04/14/23 14:31: [facility] noted. Celeste Ny, MAAME HIV PREVENTION SPECIALIST will update pt's treatment plan for use of Udencya for next treatment on 05/03/2023. Original Note: Request received for authorization for Udenyca ([id number]). Prior Authorization is approved by [facility] for time period of 3 months to transition to an alternative setting. Auth#[id number], date range: 04/07/2023 to 07/06/2023.
[2023-04-15 09:29] VITALS: BP 124/75; PULSE 84; RESP 16; TEMP 36.4; O2SAT 92
[2023-04-15] MEDS: PEGFILGRASTIM-CBQV 6 MG/0.6 ML SYRINGE SUBCUT (09:35)
[2023-05-03 09:03] LABS: Basophils Absolute Auto 0.02 K/uL (0.00-0.30); Basophils Percent Auto 0.3 % (0.0-3.0); Eosinophils Absolute Auto 0.12 K/uL (0.00-0.50); Eosinophils Percent Auto 1.7 % (0.0-7.0); Hematocrit 39.5 % (37.0-53.0); Hemoglobin* 13.6 gm/dL (13.5-17.5); Immature Granulocytes Abs Auto 0.03 K/uL (0.00-0.30); Immature Granulocytes Pct Auto 0.4 %; Lymphocytes Percent Auto 12.6 % (20-44); Mean Corpuscular HGB Conc 34 gm/dL (32-36); Mean Corpuscular Hemoglobin 34 pg (26-34); Mean Corpuscular Volume 97 fL (80-100); Monocytes Percent Auto 12.2 % (0.0-11.0); Neutrophils Percent Auto 72.8 % (42.0-72.0); Platelet Count* 200 K/uL (140-440); Red Blood Count 4.06 m/uL (4.30-5.90); White Blood Count* 7.06 K/uL (4.50-11.00)
[2023-05-03 09:06] LABS: Slide Review Reflex No
[2023-05-03 09:17] LABS: Albumin* 4.5 g/dL (3.3-5.0); Chloride* 101 mmol/L (96-114); Potassium* 3.5 mmol/L (3.6-5.1); Sodium* 139 mmol/L (135-149)
[2023-05-03 09:19] LABS: Anion Gap 9 mEq/L (7-15); Aspartate Amino Transferase* 22 U/L (12-35); Bilirubin Total* 0.7 mg/dL (0.1-1.5); Carbon Dioxide* 29 mmol/L (20-32); Creatinine* 1.2 mg/dL (0.5-1.5); Est. Creatinine Clearance* 64.13; Estimated Glomerular Filt Rate 70 ml/min; Total Protein* 7.5 g/dL (6.0-8.3)
[2023-05-03 09:20] LABS: Alanine Aminotransferase* 18 U/L (4-50); Alkaline Phosphatase* 96 U/L (40-150); Blood Urea Nitrogen* 14 mg/dL (7-30); Calcium* 9.5 mg/dL (8.4-10.6); Glucose* 98 mg/dL (60-115)
[2023-05-03] MEDS: SODIUM CHLORIDE 0.9 % (FLUSH) 10 ML SYRINGE IVF (10:29)
[2023-05-03] MEDS: dexAMETHasone 10 MG in 0.9 % SODIUM CHLORIDE 100 ml 100 ML 420 MG IVPB (10:29)
[2023-05-03] MEDS: PALONOSETRON 0.25 MG/5 ML inj IV (10:29)
[2023-05-03] MEDS: 0.9 % SODIUM CHLORIDE 250 ml IV (10:29)
[2023-05-03] MEDS: FOSAPREPITANT 150 MG inj 150 MG in 0.9 % SODIUM CHLORIDE 250 ml 250 ML 510 MG IVPB (10:50)
[2023-05-03] MEDS: CARBOplatin 750 MG, TUBING SECONDARY 1 EACH in 0.9 % SODIUM CHLORIDE 250 ml 250 ML 650 MG IVPB (11:48)
[2023-05-04] MEDS: PEGFILGRASTIM-CBQV (Udenyca) 6 MG/0.6 ML SUBCUT (13:05)
[2023-05-04] MEDS: CYANOCOBALAMIN 1,000 MCG/ML inj 1000 MCG IM (13:05)
[2023-05-04 13:13] VITALS: BP 112/70; PULSE 81; RESP 16; TEMP 37.2; O2SAT 95
--- NOTE | 2023-05-16 12:07 | ONC.NURNOTE ---
Q 3 month EKG scheduled with house sup for next week after lab draw 05/23 around 8:45
--- NOTE | 2023-05-23 15:27 | ONC.NURNOTE ---
Christi -per Kaylyn at - PA is current for Anjel roberts bagging from [facility]- RX will need to be sent either ERx or faxed this is Kwasi's preference over self administering -Kwasi will have a 20% co-insurance payment for coming to [facility] for injection instead of self injection -per Ana M the injection charge is CPT 24764 is $22.80 -clarification needed if there is an additional handling fee from pharmacy that would factor into Kwasi's overall costs If Kwasi decides on the self injection route at home a PA is needed with [facility] and then an RX will need to be sent to [facility] not [facility]
--- NOTE | 2023-05-24 10:21 | W.ED.EKGINT ---
EKG Interpretation EKG Data Attestation: I personally reviewed and interpreted this ECG as follows: Date of EKG Tracin02/24/23 EKG interpretation date: 05/24/23 EKG interpretation time: 10:23 Prior EKG tracings: available for review Interpretation: . Rhythm continues to be sinus rhythm, PACs are noted in bigeminal pattern. QTC remains stable, at 446 milliseconds this is decreased from 453 from previous EKG on 12/03/2022 Assessment: Normal sinus rhythm stable QTC
[2023-05-25 08:51] VITALS: BP 111/77; PULSE 89; RESP 16; TEMP 36.3; O2SAT 96
[2023-05-25 09:01] LABS: Basophils Absolute Auto 0.01 K/uL (0.00-0.30); Basophils Percent Auto 0.2 % (0.0-3.0); Eosinophils Absolute Auto 0.07 K/uL (0.00-0.50); Eosinophils Percent Auto 1.1 % (0.0-7.0); Hematocrit 36.1 % (37.0-53.0); Hemoglobin* 12.5 gm/dL (13.5-17.5); Immature Granulocytes Abs Auto 0.02 K/uL (0.00-0.30); Immature Granulocytes Pct Auto 0.3 %; Lymphocytes Percent Auto 8.6 % (20-44); Mean Corpuscular HGB Conc 35 gm/dL (32-36); Mean Corpuscular Hemoglobin 34 pg (26-34); Mean Corpuscular Volume 99 fL (80-100); Monocytes Percent Auto 11.2 % (0.0-11.0); Neutrophils Percent Auto 78.6 % (42.0-72.0); Platelet Count* 180 K/uL (140-440); RDW Coefficient of Variation % 16.1 % (11.5-15.5); Red Blood Count 3.65 m/uL (4.30-5.90); White Blood Count* 6.17 K/uL (4.50-11.00)
[2023-05-25 09:04] LABS: Slide Review Reflex No
[2023-05-25 09:08] LABS: Chloride* 102 mmol/L (96-114)
[2023-05-25 09:09] LABS: Albumin* 4.3 g/dL (3.3-5.0); Potassium* 3.6 mmol/L (3.6-5.1); Sodium* 137 mmol/L (135-149)
[2023-05-25 09:12] LABS: Alanine Aminotransferase* 17 U/L (4-50); Alkaline Phosphatase* 93 U/L (40-150); Anion Gap 6 mEq/L (7-15); Aspartate Amino Transferase* 21 U/L (12-35); Bilirubin Total* 0.5 mg/dL (0.1-1.5); Blood Urea Nitrogen* 16 mg/dL (7-30); Carbon Dioxide* 29 mmol/L (20-32); Creatinine* 1.2 mg/dL (0.5-1.5); Est. Creatinine Clearance* 64.13; Estimated Glomerular Filt Rate 70 ml/min; Glucose* 125 mg/dL (60-115); Total Protein* 7.2 g/dL (6.0-8.3)
[2023-05-25 09:13] LABS: Calcium* 9.4 mg/dL (8.4-10.6)
[2023-05-25] MEDS: PALONOSETRON 0.25 MG/5 ML inj IV (10:04)
[2023-05-25] MEDS: SODIUM CHLORIDE 0.9 % (FLUSH) 10 ML SYRINGE IVF (10:05)
[2023-05-25] MEDS: dexAMETHasone 10 MG in 0.9 % SODIUM CHLORIDE 100 ml 100 ML 404 MG IVPB (10:05)
[2023-05-25] MEDS: 0.9 % SODIUM CHLORIDE 250 ml IV (10:05)
[2023-05-25] MEDS: FOSAPREPITANT 150 MG inj 150 MG in 0.9 % SODIUM CHLORIDE 250 ml 250 ML 510 MG IVPB (10:27)
[2023-05-25] MEDS: CARBOplatin 750 MG, TUBING SECONDARY 1 EACH in 0.9 % SODIUM CHLORIDE 250 ml 250 ML 650 MG IVPB (11:20)
[2023-05-26 14:19] VITALS: BP 116/78; PULSE 73; RESP 16; TEMP 36.2; O2SAT 99
[2023-05-26] MEDS: PEGFILGRASTIM-CBQV (Udenyca) 6 MG/0.6 ML SUBCUT (14:19)
--- NOTE | 2023-06-02 12:39 | URNOTE ---
Going forward patient must have Udenyca white bagged or self-administer medication. Called Kaylyn at to clarify if Udenyca needs to be white bagged immediately if given here at [facility] before 07/06/23. Medication does need to be white bagged and shipped to [facility], PA is approved through [employer] Auth #[id number] (for white bagging, we need to fax the prescription). The Auth #[id number] remains open for [facility] all PA's end on 07/06/23. However, the medication needs to come from [facility] [place] ([phone]). If white bagged pt has a 20% co-insurance for hospital administered medication. Pt questioning cost of on-site outpt administration. Liliya RN states pt will want to self-administer Udenyca at home, the pharmacy benefit is handled by [facility] prescription program and will need a PA from them ([phone]) for the self-admin drug. Liliya will call and send in PA for self admin.
--- NOTE | 2023-06-03 11:25 | ONC.NURNOTE ---
Addendum entered and electronically signed by Celeste Ny, COUNTER WEIGHER 06/13/23 14:28: Mr. Avina confirmed that delivery is scheduled for Tuesday, 06/13 by noon. Addendum entered and electronically signed by Celeste Ny, COUNTER WEIGHER 06/09/23 16:04: PA approved by [facility] for fylnetra (pegfilgrastim-pbbk) 06/08/2023 to 12/08/2023. Prescription called into [facility] specialty pharmacy for fylnetra 6mg (0.6ml) prefilled syringe subQ once q 21d, refill x1. Administer 24 hours after chemotherapy. They will call Mr. Avina for $30 copay, and to arrange for delivery. He is due for his 5th cycle of chemotherapy on 06/14/23. Mr. Avina was updated with this information and agreeable with this plan. He was requested to update us when he hears from [facility] specialty pharmacy. Original Note: PA for pegfilgrastim biosimilar was denied Denial information will be reviewed with Dr. Villarreal on 06/06/23 to determine if he meets other criteria that would contribute to neutropenic fever risk and we would appeal, or if additional monitoring will be needed with next cycle of treatment for severe neutropenia after treatment.
[2023-06-14 08:07] LABS: Basophils Absolute Auto 0.01 K/uL (0.00-0.30); Basophils Percent Auto 0.1 % (0.0-3.0); Eosinophils Absolute Auto 0.07 K/uL (0.00-0.50); Hematocrit 30.6 % (37.0-53.0); Hemoglobin* 10.4 gm/dL (13.5-17.5); Immature Granulocytes Abs Auto 0.03 K/uL (0.00-0.30); Immature Granulocytes Pct Auto 0.4 %; Lymphocytes Percent Auto 10.1 % (20-44); Mean Corpuscular HGB Conc 34 gm/dL (32-36); Mean Corpuscular Hemoglobin 35 pg (26-34); Mean Corpuscular Volume 104 fL (80-100); Monocytes Percent Auto 10.4 % (0.0-11.0); Platelet Count* 154 K/uL (140-440); Red Blood Count 2.95 m/uL (4.30-5.90); White Blood Count* 7.14 K/uL (4.50-11.00)
[2023-06-14 08:11] LABS: Slide Review Reflex No
[2023-06-14 08:16] VITALS: BP 113/75; PULSE 68; RESP 16; TEMP 36.2; O2SAT 95
[2023-06-14 08:22] LABS: Albumin* 4.3 g/dL (3.3-5.0); Chloride* 107 mmol/L (96-114)
[2023-06-14 08:23] LABS: Potassium* 3.9 mmol/L (3.6-5.1); Sodium* 138 mmol/L (135-149)
[2023-06-14 08:25] LABS: Anion Gap 4 mEq/L (7-15); Bilirubin Total* 0.4 mg/dL (0.1-1.5); Carbon Dioxide* 27 mmol/L (20-32); Creatinine* 1.2 mg/dL (0.5-1.5); Est. Creatinine Clearance* 64.13; Estimated Glomerular Filt Rate 70 ml/min
[2023-06-14 08:26] LABS: Alanine Aminotransferase* 22 U/L (4-50); Alkaline Phosphatase* 87 U/L (40-150); Aspartate Amino Transferase* 25 U/L (12-35); Blood Urea Nitrogen* 16 mg/dL (7-30); Calcium* 9.3 mg/dL (8.4-10.6); Glucose* 125 mg/dL (60-115)
[2023-06-14] MEDS: PALONOSETRON 0.25 MG/5 ML inj IV (09:10)
[2023-06-14] MEDS: dexAMETHasone 10 MG in 0.9 % SODIUM CHLORIDE 100 ml 100 ML 404 MG IVPB (09:10)
[2023-06-14] MEDS: 0.9 % SODIUM CHLORIDE 250 ml IV (09:13)
[2023-06-14] MEDS: SODIUM CHLORIDE 0.9 % (FLUSH) 10 ML SYRINGE IVF (09:13)
[2023-06-14] MEDS: FOSAPREPITANT 150 MG inj 150 MG in 0.9 % SODIUM CHLORIDE 250 ml 250 ML 510 MG IVPB (09:37)
[2023-06-14] MEDS: CARBOplatin 750 MG, TUBING SECONDARY 1 EACH in 0.9 % SODIUM CHLORIDE 250 ml 250 ML 650 MG IVPB (10:22)
--- NOTE | 2023-06-23 08:47 | ONC.NURNOTE ---
Addendum entered and electronically signed by Celeste Ny, MAAME 06/23/23 14:23: Confirmed with Анна at [facility] that Mr. Avina's PA was denied for udencya (pegfilgrastim biosimilar) by insurance. Mr. Avina's PA was approved for fylvestra (pegfilgrastim biosimilar) and a script was sent to [facility] pharmacy for 2 doses, for his 2 remaining cycles ot chemotherapy. He confirmed that he received 2 doses of fylvestra at home before we treated him, and self injected the first dose. He is due for his last cycle of treatment on 07/05/23 and will self-administer his last dose of fylvestra 24 hours later at home. Our office was not aware or notified that [facility] had made referral for [facility] to assist pt with injection of fylvestra. Original Note: Received message from to call Анна at [facility] regarding pt and Odencia. #[phone]. [facility] [employer] called Анна back and left a message to call [facility].
[2023-07-04 08:09] LABS: Basophils Absolute Auto 0.01 K/uL (0.00-0.30); Basophils Percent Auto 0.1 % (0.0-3.0); Eosinophils Absolute Auto 0.08 K/uL (0.00-0.50); Eosinophils Percent Auto 0.9 % (0.0-7.0); Hematocrit 29.3 % (37.0-53.0); Hemoglobin* 9.8 gm/dL (13.5-17.5); Immature Granulocytes Abs Auto 0.08 K/uL (0.00-0.30); Immature Granulocytes Pct Auto 0.9 %; Lymphocytes Percent Auto 10.8 % (20-44); Mean Corpuscular HGB Conc 33 gm/dL (32-36); Mean Corpuscular Hemoglobin 36 pg (26-34); Mean Corpuscular Volume 109 fL (80-100); Monocytes Percent Auto 9.6 % (0.0-11.0); Neutrophils Percent Auto 77.7 % (42.0-72.0); Platelet Count* 183 K/uL (140-440); RDW Coefficient of Variation % 17.9 % (11.5-15.5); Red Blood Count 2.69 m/uL (4.30-5.90); White Blood Count* 9.33 K/uL (4.50-11.00)
[2023-07-04 08:13] LABS: Slide Review Reflex No
[2023-07-04 08:29] LABS: Albumin* 4.4 g/dL (3.3-5.0); Chloride* 105 mmol/L (96-114); Sodium* 138 mmol/L (135-149)
[2023-07-04 08:30] LABS: Potassium* 3.7 mmol/L (3.6-5.1)
[2023-07-04 08:32] LABS: Alkaline Phosphatase* 104 U/L (40-150); Anion Gap 7 mEq/L (7-15); Aspartate Amino Transferase* 25 U/L (12-35); Bilirubin Total* 0.5 mg/dL (0.1-1.5); Blood Urea Nitrogen* 19 mg/dL (7-30); Carbon Dioxide* 26 mmol/L (20-32); Creatinine* 1.4 mg/dL (0.5-1.5); Est. Creatinine Clearance* 54.29; Estimated Glomerular Filt Rate 58 ml/min; Total Protein* 7.2 g/dL (6.0-8.3)
[2023-07-04 08:33] LABS: Alanine Aminotransferase* 18 U/L (4-50); Calcium* 9.4 mg/dL (8.4-10.6); Glucose* 117 mg/dL (60-115)
[2023-07-04] MEDS: dexAMETHasone 10 MG in 0.9 % SODIUM CHLORIDE 100 ml 100 ML 404 MG IVPB (09:18)
[2023-07-04] MEDS: PALONOSETRON 0.25 MG/5 ML inj IV (09:19)
[2023-07-04] MEDS: FOSAPREPITANT 150 MG inj 150 MG in 0.9 % SODIUM CHLORIDE 250 ml 250 ML 510 MG IVPB (09:42)
[2023-07-04] MEDS: SODIUM CHLORIDE 0.9 % (FLUSH) 10 ML SYRINGE IVF (09:43)
[2023-07-04] MEDS: 0.9 % SODIUM CHLORIDE 250 ml IV (09:43)
[2023-07-07 13:39] VITALS: BP 106/72; PULSE 76; RESP 16; TEMP 36; O2SAT 96
[2023-07-07] MEDS: CYANOCOBALAMIN 1,000 MCG/ML inj 1000 MCG IM (13:41)
== END 2023-07-24 23:59 | disposition home or self-care (01) ==
LOC: CCIC 13:00
PROVIDERS: Clinical Nurse Specialist; PCP Family Medicine; Referring Provider Family Medicine; Visit Provider Internal Medicine Hematology & Oncology
DX: C34.91 Malignant neoplasm of unspecified part of right bronchus or lung (principal); C79.51 Secondary malignant neoplasm of bone
CPT/HCPCS: 36415; 36591; 80053; 85025; 93005; 93010; 96360; 96366; 96372; 96376; 96401; 96409; 96411; 96413; 96417; 99211; 99212; 99214; 99215; G0463; J1100; J1453; J2469; J3420; J3490; J7050; J9045; J9305; Q5111

== ENCOUNTER 2023-08-18 13:37 | Outpatient (CLI) | payer OTHER, SELFPAY ==
--- NOTE | 2023-08-18 14:00 | PE_ITS ---
[facility] [address] [facility] [address] Phone:?[phone] Fax:?[phone] Referring Physician Information: Airam Villarreal M.D. [address] [facility] [address] Phone:?[phone] Fax:?[phone] Patient:Deann Avina D.O.B:?1965 Sex:?Male Phone:?[phone] [facility] MRN:?[id number] Exam Date:?08/18/2023 EXAM: PET/CT SCAN MID-ORBITS TO PROXIMAL THIGHS CLINICAL INFORMATION: Metastatic non-small cell lung carcinoma; restaging. Prior right middle and lower lobectomy with radiation treatment completion left level 2 lymph node 02/15/2023. Recent chemotherapy treatment completion. TECHNICAL INFORMATION: Spiral acquisition of data was obtained from the mid orbits to the proximal thighs with reconstruction of 3.75 mm thick images at 3.[address] data was used for attenuation correction. PET scanning was performed through the same anatomic range 60 following administration of 10.0 mCi of 18-FDG delivered intravenously. The patient's glucose at the time of the injection was mg/dL. PET, CT and PET/CT fusion images are interpreted using a computer viewing workstation. SUV max liver 3.37; BMI normalization method. INTERPRETATION: Head and Neck: No abnormal radiotracer uptake. Chest: Prior right thoracotomy and right middle/lower lobectomy change, stable. No right lung nodule or infiltrate. Stable bandlike opacity left base, SUV max 2.59, previously 1.53. 8 mm subpleural opacity left apex image 92, SUV max 2.35, previously 2.05. Left posterior perihilar node, SUV max 2.74 image 114, previously SUV max 2.79 8 mm right axillary lymph node, SUV max 1.72 image 94, previous SUV max 2.07. 7 mm left axillary node SUV max 1.73, previously 1.35. Abdomen, Pelvis and Proximal Thighs: No liver lesion. No bile duct dilatation. The adrenal glands, pancreas, gallbladder, kidneys and spleen are unremarkable. Normal caliber abdominal aorta. No pathologic mesenteric or retroperitoneal adenopathy. No pelvic mass, adenopathy, hernia or fluid collection. MUSCULOSKELETAL: Stable sclerotic appearance of left first and second rib, SUV max left first rib 2.17, previously 2.0. Posterior spinous process T12, unchanged. Right L5 articular facet 2.05, previously 1.91. CONCLUSION: 1. Overall, no significant interval change is identified since 05/26/2023. Left posterior perihilar lymph node SUV max 2.74, previously 2.79. Stable thoracotomy changes along with 8 mm subpleural opacity left apex and stable bandlike opacity left base. No new lung nodule or infiltrate. 2. Stable appearance of 8 mm right axillary and 7 mm left axillary nodes and sclerotic lesions involving the left first/second ribs, posterior T12 spinous process and right superior L5 articular facet. No new osseous lesions. Electronically signed on 08/22/2023 12:21:00 PM by Bill Jc M.D.
== END 2023-08-18 13:38 | disposition home or self-care (01) ==
LOC: RAD 13:38
PROVIDERS: PCP Family Medicine; Visit Provider Internal Medicine Hematology & Oncology
DX: C34.11 Malignant neoplasm of upper lobe, right bronchus or lung (principal); R59.0 Localized enlarged lymph nodes; M89.9 Disorder of bone, unspecified
CPT/HCPCS: 78815; A9552

== ENCOUNTER 2023-08-23 08:04 | Outpatient (CLI) | payer OTHER, SELFPAY ==
--- NOTE | 2023-08-23 08:15 | CRLHL7_ITS ---
For Patients: As a result of the Century Cures Act, medical imaging exams and procedure reports are released immediately into your electronic medical record. You may view this report before your referring provider. If you have questions, please contact your health care provider. INDICATION: History of metastatic lung cancer. TECHNIQUE: Brain scanned with sagittal and axial T1 axial FLAIR T2 diffusion-weighted susceptibility weighted and gadolinium-enhanced multiplanar MRI imaging of the brain. 20 cc of Dotarem contrast utilized. COMPARISON: Previous MRI brain dated 04/28/2023. FINDINGS: Ventricles and subarachnoid spaces mildly enlarged for age due to volume loss but stable from the prior examination. No new enhancing intra-axial or extra-axial lesions. Specifically no evidence of intracranial metastatic neoplasm. No mass effect or shift of midline structures. Multiple small foci of nonenhancing FLAIR/T2 hyperintensity within the supratentorial white matter right basal ganglia morteza and deep cerebellar hemispheres consistent with chronic small vessel ischemic disease appears stable. No evidence of acute ischemic infarction no areas of diffusion restriction. No evidence of intracranial hemorrhage. The orbits sella suprasellar cistern and skull base are unremarkable. Small retention cyst in the left maxillary sinus. IMPRESSION: 1. No new findings compared to prior brain MRI dated 04/28/2023. 2. No evidence of intracranial metastatic neoplasm. 3. Mild generalized volume loss. Nonenhancing signal changes consistent with chronic small vessel ischemic disease: Stable. 4. No evidence of acute intracranial abnormality. No new enhancing lesions. Dictated by Jimmie Maldonado MD @ 08/24/2023 7:52:36 AM (Electronically Signed)
== END 2023-08-23 08:05 | disposition home or self-care (01) ==
LOC: MRI 08:04
PROVIDERS: PCP Family Medicine; Visit Provider Internal Medicine Hematology & Oncology
DX: C34.90 Malignant neoplasm of unspecified part of unspecified bronchus or lung (principal)
CPT/HCPCS: 70553; A9575

== ENCOUNTER 2023-11-04 09:57 | Outpatient (CLI) | payer OTHER, SELFPAY ==
--- NOTE | 2023-11-04 10:15 | CRLHL7_ITS ---
For Patients: As a result of the Century Cures Act, medical imaging exams and procedure reports are released immediately into your electronic medical record. You may view this report before your referring provider. If you have questions, please contact your health care provider. INDICATION: Lung cancer. Staging. TECHNIQUE: Brain MRI with and without contrast. 20 cc gadolinium based contrast administered. COMPARISON: None. FINDINGS: No evidence of acute ischemia. No evidence of acute or chronic intracranial blood products. No mass or pathologic intracranial enhancement. Scattered FLAIR hyperintensities within the supratentorial white matter, brainstem and brachium pontis, typical for a combination of chronic microvascular ischemic change and old demyelination/inflammation. No hydrocephalus or extra-axial collections. The pituitary gland, parasellar structures and optic chiasm are normal. A posterior fossa orlando cisterna magna. All the major intracranial vascular structures demonstrate normal flow-related signal. The orbital contents are normal. No calvarial or skull base marrow signal abnormality. A left maxillary sinus retention cyst. No extracranial soft tissue findings. IMPRESSION: 1. No evidence of intracranial metastatic disease. 2. No acute infarction or acute intracranial pathology. 3. Gdol-ak-jxcehdbg burden of FLAIR hyperintensities within the supratentorial white matter, brainstem and brachium pontis, typical for a combination of chronic microvascular ischemic change and old demyelination/inflammation. Dictated by Rufino Rebolledo MD @ 11/04/2023 1:18:58 PM (Electronically Signed)
== END 2023-11-04 09:58 | disposition home or self-care (01) ==
LOC: MRI 09:58
PROVIDERS: PCP Family Medicine; Visit Provider Internal Medicine Hematology & Oncology
DX: C34.90 Malignant neoplasm of unspecified part of unspecified bronchus or lung (principal)
CPT/HCPCS: 70553; A9575

== ENCOUNTER 2023-11-10 15:24 | Outpatient (CLI) | payer OTHER, SELFPAY ==
--- NOTE | 2023-11-10 16:00 | PE_ITS ---
[facility] [address] [facility] [address] Phone:?[phone] Fax:?[phone] Referring Physician Information: Airam Villarreal M.D. [address] [facility] [address] Phone:?[phone] Fax:?[phone] Patient:Deann Avina D.O.B:?1965 Sex:?Male Phone:?[phone] [facility] MRN:?[id number] Exam Date:?11/10/2023 EXAM:?PET/CT EYES TO THIGHS, CANCER RESTAGING CLINICAL INFORMATION: Lung cancer TECHNICAL INFORMATION: Helical acquisition of data was obtained from the orbits to the upper thighs with reconstruction of 3.75 mm thick images at 3.[address] data was used for attenuation correction. PET scanning was performed through the same anatomic range 60 minutes following administration of 12.55 mCi of 18-FDG delivered intravenously. The patient's glucose at the time of the injection was 83 mg/dL. PET, CT and PET/CT fusion images are interpreted using a computer viewing workstation. PET, CT and PET/CT fusion images were archived and saved in the patient's permanent medical record. COMPARISON: PET/CT 08/18/2023 and prior exams INTERPRETATION: Head and Neck: There are no abnormal hypermetabolic foci within the head or neck. There is physiologic uptake in the intracranial soft tissues. Chest: Mediastinal blood pool activity with a mean SUV of 2.49. Redemonstrated postsurgical changes of right middle/lower lobe lobectomy. No significant soft tissue thickening or radiotracer uptake along the suture margins. Stable left posterior perihilar lymph node measuring 7 mm with low-level radiotracer avidity and an SUV max of 2.95, previously 2.79 (series 202 image 111). Similar prominent axillary lymph nodes low-level radiotracer avidity. Aquaculture Director left axillary lymph node measuring 8 mm in short axis (series 202 image 86) with an SUV max of 3.85, previously 1.72. A right axillary lymph node measuring 6 mm in short axis (series 202 image 89) an SUV max of 3.71. Similar bandlike consolidative opacity in the left lower lobe with low level radiotracer avidity and an SUV max of 2.97, previously 2.59. Stable subpleural opacity in the left lung apex (series 202 image 90) with low level radiotracer uptake and SUV max of 3.06, previously 2.35. Abdomen and Pelvis: Background liver parenchymal uptake with a mean SUV of 3.34. There are no abnormal hypermetabolic foci within the abdomen or pelvis. There is physiologic excretion of radiotracer in the urine and bowel. Calcified granulomas in the spleen. Mild prostamegaly. Skeleton, Musculature, and Integument: Stable appearance of sites of treated osseous metastasis involving the left first and second ribs without significant radiotracer avidity. Stable sclerotic appearance of the posterior T12 spinous process without significant radiotracer avidity. Stable appearance of the right L5 articular facet, also without significant radiotracer avidity. No new sites of osseous metastasis. CONCLUSION: * Stable exam. Stable postsurgical changes of right middle/lower lobectomy without evidence of local recurrence of disease. * Stable left perihilar lymph node with low-level radiotracer avidity. No new or enlarging mediastinal or hilar lymph nodes. * Similar prominent axillary lymph nodes with low level radiotracer avidity which may be reactive. Attention on follow-up imaging. * Stable subpleural opacity in the left upper lobe and bandlike opacity in the left lower lobe with low level radiotracer avidity. * Stable sclerotic foci without significant radiotracer avidity compatible with treated osseous metastasis. No new osseous lesions. Electronically signed on 11/14/2023 8:33:00 AM by Piero Collins D.O
== END 2023-11-10 15:25 | disposition home or self-care (01) ==
LOC: RAD 15:25
PROVIDERS: PCP Family Medicine; Visit Provider Internal Medicine Hematology & Oncology
DX: C34.11 Malignant neoplasm of upper lobe, right bronchus or lung (principal)
CPT/HCPCS: 78815; A9552

== ENCOUNTER 2023-12-16 08:19 | Outpatient (CLI) | payer OTHER, SELFPAY ==
--- NOTE | 2023-12-16 10:23 | W.ANESCHARGE ---
Anesthesia Charges Start Date/Time Anesthesia Start Date: 12/16/23 Anesthesia Start Time: 09:35 Stop Date/Time Anesthesia Stop Date: 12/16/23 Anesthesia Stop Time: 10:19
== END 2023-12-16 08:20 | disposition home or self-care (01) ==
LOC: OP CLINIC 08:19
PROVIDERS: PCP Family Medicine; Visit Provider Internal Medicine Gastroenterology
DX: K52.9 Noninfective gastroenteritis and colitis, unspecified (principal); Z86.0101 Personal history of adenomatous and serrated colon polyps
CPT/HCPCS: 00813; 43239; 45380; 88305; 94640; J2704; J3490

== ENCOUNTER 2024-01-03 07:45 | Outpatient (RCR) | payer OTHER, SELFPAY ==
[2023-07-26 08:03] LABS: Basophils Absolute Auto 0.01 K/uL (0.00-0.30); Basophils Percent Auto 0.2 % (0.0-3.0); Eosinophils Absolute Auto 0.06 K/uL (0.00-0.50); Eosinophils Percent Auto 1.1 % (0.0-7.0); Hematocrit 30.7 % (37.0-53.0); Hemoglobin* 10.4 gm/dL (13.5-17.5); Immature Granulocytes Abs Auto 0.01 K/uL (0.00-0.30); Immature Granulocytes Pct Auto 0.2 %; Lymphocytes Percent Auto 12.5 % (20-44); Mean Corpuscular HGB Conc 34 gm/dL (32-36); Mean Corpuscular Hemoglobin 38 pg (26-34); Mean Corpuscular Volume 111 fL (80-100); Monocytes Percent Auto 10.8 % (0.0-11.0); Neutrophils Percent Auto 75.2 % (42.0-72.0); Platelet Count* 164 K/uL (140-440); RDW Coefficient of Variation % 16.4 % (11.5-15.5); Red Blood Count 2.77 m/uL (4.30-5.90); White Blood Count* 5.27 K/uL (4.50-11.00)
[2023-07-26 08:07] LABS: Slide Review Reflex No
[2023-07-26 08:21] LABS: Albumin* 4.6 g/dL (3.3-5.0); Chloride* 107 mmol/L (96-114)
[2023-07-26 08:22] LABS: Potassium* 3.9 mmol/L (3.6-5.1); Sodium* 138 mmol/L (135-149)
[2023-07-26 08:24] LABS: Alkaline Phosphatase* 100 U/L (40-150); Anion Gap 6 mEq/L (7-15); Aspartate Amino Transferase* 25 U/L (12-35); Bilirubin Total* 0.6 mg/dL (0.1-1.5); Carbon Dioxide* 25 mmol/L (20-32); Creatinine* 1.2 mg/dL (0.5-1.5); Estimated Glomerular Filt Rate 69 ml/min; Total Protein* 7.6 g/dL (6.0-8.3)
[2023-07-26 08:25] LABS: Alanine Aminotransferase* 18 U/L (4-50); Blood Urea Nitrogen* 15 mg/dL (7-30); Calcium* 9.8 mg/dL (8.4-10.6); Glucose* 124 mg/dL (60-115)
[2023-07-26] MEDS: SODIUM CHLORIDE 0.9 % (FLUSH) 10 ML SYRINGE IVF (09:17)
[2023-07-26] MEDS: PALONOSETRON 0.25 MG/5 ML inj IV (09:17)
[2023-07-26] MEDS: 0.9 % SODIUM CHLORIDE 250 ml IV (09:17)
[2023-07-26] MEDS: dexAMETHasone 10 MG in 0.9 % SODIUM CHLORIDE 100 ml 100 ML 420 MG IVPB (09:17)
[2023-08-16 08:15] LABS: Basophils Absolute Auto 0.01 K/uL (0.00-0.30); Basophils Percent Auto 0.2 % (0.0-3.0); Eosinophils Absolute Auto 0.11 K/uL (0.00-0.50); Eosinophils Percent Auto 2.3 % (0.0-7.0); Hematocrit 33.6 % (37.0-53.0); Hemoglobin* 11.4 gm/dL (13.5-17.5); Lymphocytes Percent Auto 13.9 % (20-44); Mean Corpuscular HGB Conc 34 gm/dL (32-36); Mean Corpuscular Hemoglobin 36 pg (26-34); Mean Corpuscular Volume 106 fL (80-100); Monocytes Percent Auto 13.5 % (0.0-11.0); Neutrophils Absolute Auto 3.32 K/uL (1.7-7.0); Neutrophils Percent Auto 70.1 % (42.0-72.0); Platelet Count* 135 K/uL (140-440); RDW Coefficient of Variation % 13.6 % (11.5-15.5); Red Blood Count 3.17 m/uL (4.30-5.90); Slide Review Reflex No; White Blood Count* 4.74 K/uL (4.50-11.00)
[2023-08-16 08:29] LABS: Albumin* 4.5 g/dL (3.3-5.0); Chloride* 104 mmol/L (96-114); Potassium* 4.1 mmol/L (3.6-5.1); Sodium* 136 mmol/L (135-149)
[2023-08-16 08:31] LABS: Anion Gap 7 mEq/L (7-15); Aspartate Amino Transferase* 27 U/L (12-35); Carbon Dioxide* 25 mmol/L (20-32); Creatinine* 1.3 mg/dL (0.5-1.5); Estimated Glomerular Filt Rate 63 ml/min
[2023-08-16 08:32] LABS: Alanine Aminotransferase* 17 U/L (4-50); Alkaline Phosphatase* 91 U/L (40-150); Blood Urea Nitrogen* 16 mg/dL (7-30); Calcium* 9.3 mg/dL (8.4-10.6); Glucose* 109 mg/dL (60-115); Total Protein* 7.2 g/dL (6.0-8.3)
[2023-08-16 08:47] LABS: Bilirubin Total* 0.6 mg/dL (0.1-1.5)
[2023-08-16 08:51] VITALS: BP 113/77; PULSE 78; RESP 18; TEMP 36.3; O2SAT 94
[2023-08-16] MEDS: dexAMETHasone 10 MG in 0.9 % SODIUM CHLORIDE 100 ml 100 ML 404 MG IVPB (09:23)
[2023-08-16] MEDS: PALONOSETRON 0.25 MG/5 ML inj IV (09:23)
[2023-08-16] MEDS: 0.9 % SODIUM CHLORIDE 250 ml IV (10:55)
--- NOTE | 2023-08-23 11:05 | W.ED.EKGINT ---
EKG Interpretation EKG Data Attestation: I personally reviewed and interpreted this ECG as follows: Date of EKG Tracin08/23/23 EKG interpretation date: 08/23/23 Prior EKG tracings: available for review Interpretation: EKG from the above date shows patient to be in sinus rhythm, ventricular rate of 78. No acute ST wave changes are noted. QRS is 92 milliseconds and QT is 386 milliseconds and QTC baz is 4 and 40 milliseconds. Comparison with EKG from 05/25/2023 is done. Assessment: Normal EKG, normal intervals, no acute changes.
[2023-09-06 07:57] VITALS: BP 122/71; PULSE 78; RESP 16; TEMP 36.5; O2SAT 96
[2023-09-06 07:59] LABS: Basophils Percent Auto 0.3 % (0.0-3.0); Eosinophils Percent Auto 2.3 % (0.0-7.0); Hematocrit 32.8 % (37.0-53.0); Hemoglobin* 11.1 gm/dL (13.5-17.5); Immature Granulocytes Pct Auto 0.3 %; Lymphocytes Percent Auto 20.4 % (20-44); Mean Corpuscular HGB Conc 34 gm/dL (32-36); Mean Corpuscular Hemoglobin 36 pg (26-34); Mean Corpuscular Volume 105 fL (80-100); Neutrophils Percent Auto 60.7 % (42.0-72.0); Platelet Count* 187 K/uL (140-440); Red Blood Count 3.13 m/uL (4.30-5.90); White Blood Count* 3.87 K/uL (4.50-11.00)
[2023-09-06 08:03] LABS: Slide Review Reflex No
[2023-09-06 08:10] LABS: Chloride* 105 mmol/L (96-114)
[2023-09-06 08:11] LABS: Albumin* 4.2 g/dL (3.3-5.0); Potassium* 4.2 mmol/L (3.6-5.1); Sodium* 137 mmol/L (135-149)
[2023-09-06 08:14] LABS: Alanine Aminotransferase* 24 U/L (4-50); Alkaline Phosphatase* 91 U/L (40-150); Anion Gap 10 mEq/L (7-15); Aspartate Amino Transferase* 34 U/L (12-35); Bilirubin Total* 0.3 mg/dL (0.1-1.5); Blood Urea Nitrogen* 17 mg/dL (7-30); Calcium* 9.7 mg/dL (8.4-10.6); Carbon Dioxide* 22 mmol/L (20-32); Creatinine* 1.4 mg/dL (0.5-1.5); Estimated Glomerular Filt Rate 58 ml/min; Glucose* 165 mg/dL (60-115); Total Protein* 6.9 g/dL (6.0-8.3)
[2023-09-06] MEDS: PALONOSETRON 0.25 MG/5 ML inj IV (08:47)
[2023-09-06] MEDS: 0.9 % SODIUM CHLORIDE 250 ml IV (08:48)
[2023-09-06] MEDS: dexAMETHasone 10 MG in 0.9 % SODIUM CHLORIDE 100 ml 100 ML 404 MG IVPB (08:48)
[2023-09-06] MEDS: CYANOCOBALAMIN 1,000 MCG/ML inj 1000 MCG IM (09:17)
[2023-09-27 08:06] LABS: Basophils Percent Auto 0.2 % (0.0-3.0); Eosinophils Percent Auto 3.3 % (0.0-7.0); Hematocrit 32.8 % (37.0-53.0); Hemoglobin* 10.9 gm/dL (13.5-17.5); Immature Granulocytes Pct Auto 0.5 %; Lymphocytes Percent Auto 17.2 % (20-44); Mean Corpuscular HGB Conc 33 gm/dL (32-36); Mean Corpuscular Hemoglobin 35 pg (26-34); Mean Corpuscular Volume 105 fL (80-100); Monocytes Percent Auto 14.4 % (0.0-11.0); Neutrophils Percent Auto 64.4 % (42.0-72.0); Platelet Count* 228 K/uL (140-440); RDW Coefficient of Variation % 14.2 % (11.5-15.5); Red Blood Count 3.14 m/uL (4.30-5.90); White Blood Count* 4.24 K/uL (4.50-11.00)
[2023-09-27 08:09] LABS: Slide Review Reflex No
[2023-09-27 08:14] LABS: Albumin* 4.3 g/dL (3.3-5.0); Chloride* 104 mmol/L (96-114)
[2023-09-27 08:15] LABS: Potassium* 4.2 mmol/L (3.6-5.1); Sodium* 136 mmol/L (135-149)
[2023-09-27 08:17] LABS: Anion Gap 8 mEq/L (7-15); Aspartate Amino Transferase* 34 U/L (12-35); Bilirubin Total* 0.4 mg/dL (0.1-1.5); Carbon Dioxide* 24 mmol/L (20-32); Creatinine* 1.6 mg/dL (0.5-1.5); Estimated Glomerular Filt Rate 49 ml/min; Total Protein* 7.2 g/dL (6.0-8.3)
[2023-09-27 08:18] LABS: Alanine Aminotransferase* 24 U/L (4-50); Alkaline Phosphatase* 95 U/L (40-150); Blood Urea Nitrogen* 19 mg/dL (7-30); Calcium* 9.5 mg/dL (8.4-10.6); Glucose* 127 mg/dL (60-115)
[2023-09-27] MEDS: SODIUM CHLORIDE 0.9 % (FLUSH) 10 ML SYRINGE IVF (09:26)
[2023-09-27] MEDS: 0.9 % SODIUM CHLORIDE 500 ML 500 ML IV (09:28)
[2023-09-27] MEDS: PALONOSETRON 0.25 MG/5 ML inj IV (09:29)
[2023-09-27] MEDS: dexAMETHasone 10 MG in 0.9 % SODIUM CHLORIDE 100 ml 100 ML 404 MG IVPB (09:50)
[2023-10-03 12:00] LABS: C.Difficile Negative (Negative); CDIFFEPI 027 PRESUMPTIVE NEGATIVE (Negative)
--- NOTE | 2023-10-04 16:21 | PC.NURSE ---
Addendum entered by Sabi Nova RN 10/05/23 13:21: Discussed with Dr. Villarreal and she will adjust oral and IV chemo when time comes closer to date but to go ahead and schedule it. Patient called and told also reviewed stool culture results and it was negative Original Note: Pt called today to report that he is being worked up for abdominal pain. He is scheduled for a colonoscopy/EGD on 12/16/2023. Kwasi would like Dr. Villarreal's permission to do this procedure. Will review with and follow-up with Kwasi tomorrow.
[2023-10-25 08:14] LABS: Basophils Absolute Auto 0.01 K/uL (0.00-0.30); Basophils Percent Auto 0.2 % (0.0-3.0); Eosinophils Absolute Auto 0.07 K/uL (0.00-0.50); Eosinophils Percent Auto 1.2 % (0.0-7.0); Hemoglobin* 10.5 gm/dL (13.5-17.5); Immature Granulocytes Abs Auto 0.01 K/uL (0.00-0.30); Immature Granulocytes Pct Auto 0.2 %; Lymphocytes Percent Auto 14.9 % (20-44); Mean Corpuscular HGB Conc 33 gm/dL (32-36); Mean Corpuscular Hemoglobin 34 pg (26-34); Mean Corpuscular Volume 103 fL (80-100); Monocytes Percent Auto 12.1 % (0.0-11.0); Neutrophils Absolute Auto 4.21 K/uL (1.7-7.0); Neutrophils Percent Auto 71.4 % (42.0-72.0); Platelet Count* 153 K/uL (140-440); RDW Coefficient of Variation % 14.7 % (11.5-15.5); Red Blood Count 3.11 m/uL (4.30-5.90); Slide Review Reflex No; White Blood Count* 5.89 K/uL (4.50-11.00)
[2023-10-25 08:25] LABS: Albumin* 4.1 g/dL (3.3-5.0)
[2023-10-25 08:26] LABS: Chloride* 104 mmol/L (96-114); Potassium* 3.9 mmol/L (3.6-5.1); Sodium* 136 mmol/L (135-149)
[2023-10-25 08:28] LABS: Anion Gap 8 mEq/L (7-15); Aspartate Amino Transferase* 29 U/L (12-35); Bilirubin Total* 0.5 mg/dL (0.1-1.5); Carbon Dioxide* 24 mmol/L (20-32); Creatinine* 1.5 mg/dL (0.5-1.5); Est. Creatinine Clearance* 48.96; Estimated Glomerular Filt Rate 53 ml/min; Total Protein* 6.9 g/dL (6.0-8.3)
[2023-10-25 08:29] LABS: Alanine Aminotransferase* 14 U/L (4-50); Alkaline Phosphatase* 84 U/L (40-150); Blood Urea Nitrogen* 15 mg/dL (7-30); Calcium* 9.1 mg/dL (8.4-10.6); Glucose* 97 mg/dL (60-115)
[2023-10-25] MEDS: 0.9 % SODIUM CHLORIDE 250 ml IV (09:15)
[2023-10-25] MEDS: dexAMETHasone 10 MG in 0.9 % SODIUM CHLORIDE 100 ml 100 ML 404 MG IVPB (09:15)
[2023-10-25] MEDS: SODIUM CHLORIDE 0.9 % (FLUSH) 10 ML SYRINGE IVF (09:15)
[2023-10-25] MEDS: PALONOSETRON 0.25 MG/5 ML inj IV (09:15)
--- NOTE | 2023-11-01 13:13 | ONC.NURNOTE ---
Bob CALLES Approved [facility]? [phone] Bob CALLES 11/01/23-10/31/24 [id number] MP
[2023-11-14 08:56] LABS: Basophils Percent Auto 0.3 % (0.0-3.0); Eosinophils Percent Auto 1.9 % (0.0-7.0); Hematocrit 32.8 % (37.0-53.0); Hemoglobin* 10.8 gm/dL (13.5-17.5); Immature Granulocytes Pct Auto 0.3 %; Lymphocytes Percent Auto 24.5 % (20-44); Mean Corpuscular HGB Conc 33 gm/dL (32-36); Mean Corpuscular Hemoglobin 34 pg (26-34); Mean Corpuscular Volume 104 fL (80-100); Monocytes Percent Auto 17.4 % (0.0-11.0); Neutrophils Percent Auto 55.6 % (42.0-72.0); Platelet Count* 168 K/uL (140-440); RDW Coefficient of Variation % 14.5 % (11.5-15.5); Red Blood Count 3.17 m/uL (4.30-5.90); White Blood Count* 3.22 K/uL (4.50-11.00)
[2023-11-14 09:00] LABS: Slide Review Reflex No
[2023-11-14 09:08] LABS: Albumin* 4.2 g/dL (3.3-5.0); Chloride* 103 mmol/L (96-114)
[2023-11-14 09:09] LABS: Potassium* 3.9 mmol/L (3.6-5.1); Sodium* 137 mmol/L (135-149)
[2023-11-14 09:11] LABS: Alanine Aminotransferase* 23 U/L (4-50); Alkaline Phosphatase* 86 U/L (40-150); Anion Gap 9 mEq/L (7-15); Aspartate Amino Transferase* 31 U/L (12-35); Bilirubin Total* 0.5 mg/dL (0.1-1.5); Blood Urea Nitrogen* 20 mg/dL (7-30); Carbon Dioxide* 25 mmol/L (20-32); Creatinine* 1.6 mg/dL (0.5-1.5); Estimated Glomerular Filt Rate 49 ml/min; Glucose* 113 mg/dL (60-115); Total Protein* 6.9 g/dL (6.0-8.3)
[2023-11-14 09:12] LABS: Calcium* 9.2 mg/dL (8.4-10.6)
[2023-11-15 07:58] VITALS: BP 120/76; PULSE 73; RESP 16; TEMP 35.9; O2SAT 96
[2023-11-15] MEDS: 0.9 % SODIUM CHLORIDE 1000 ml 1,000 ML IV (08:10)
[2023-11-15] MEDS: PALONOSETRON 0.25 MG/5 ML inj IV (09:06)
[2023-11-15] MEDS: dexAMETHasone 10 MG in 0.9 % SODIUM CHLORIDE 100 ml 100 ML 404 MG IVPB (09:06)
[2023-11-15] MEDS: CYANOCOBALAMIN 1,000 MCG/ML inj 1000 MCG IM (09:51)
--- NOTE | 2023-11-22 11:01 | W.ED.EKGINT ---
EKG Interpretation EKG Data Attestation: I personally reviewed and interpreted this ECG as follows: Date of EKG Tracin11/14/23 EKG interpretation date: 11/22/23 Prior EKG tracings: available for review Interpretation: EKG interpretation from 11/14/2023. Indication for review is chemotherapeutic treatment. Comparison EKG from 08/23/2023, rhythm continues to be sinus rhythm, with sinus arrhythmia, ventricular rate 71, QT slightly increased to 406 from 386. QTC largely unchanged from 440-441. Remainder of EKG looks unchanged. With no acute ST wave changes Assessment: Normal sinus rhythm with sinus arrhythmia, very mild lengthening of QT and QTC. Noted above
[2023-12-13 08:04] LABS: Eosinophils Percent Auto 2.5 % (0.0-7.0); Hematocrit 34.8 % (37.0-53.0); Hemoglobin* 11.4 gm/dL (13.5-17.5); Lymphocytes Percent Auto 21.1 % (20-44); Mean Corpuscular HGB Conc 33 gm/dL (32-36); Mean Corpuscular Hemoglobin 35 pg (26-34); Mean Corpuscular Volume 106 fL (80-100); Monocytes Percent Auto 13.6 % (0.0-11.0); Neutrophils Percent Auto 62.8 % (42.0-72.0); Platelet Count* 155 K/uL (140-440); RDW Coefficient of Variation % 14.4 % (11.5-15.5); Red Blood Count 3.29 m/uL (4.30-5.90)
[2023-12-13 08:11] LABS: Slide Review Reflex No
[2023-12-13 08:18] LABS: Albumin* 4.5 g/dL (3.3-5.0); Chloride* 100 mmol/L (96-114); Potassium* 4.1 mmol/L (3.6-5.1); Sodium* 136 mmol/L (135-149)
[2023-12-13 08:21] LABS: Alanine Aminotransferase* 16 U/L (4-50); Alkaline Phosphatase* 82 U/L (40-150); Anion Gap 9 mEq/L (7-15); Aspartate Amino Transferase* 29 U/L (12-35); Bilirubin Total* 0.6 mg/dL (0.1-1.5); Blood Urea Nitrogen* 21 mg/dL (7-30); Carbon Dioxide* 27 mmol/L (20-32); Creatinine* 1.7 mg/dL (0.5-1.5); Estimated Glomerular Filt Rate 46 ml/min; Glucose* 97 mg/dL (60-115); Total Protein* 7.3 g/dL (6.0-8.3)
[2023-12-13 08:22] LABS: Calcium* 9.7 mg/dL (8.4-10.6)
[2023-12-13] MEDS: dexAMETHasone 10 MG in 0.9 % SODIUM CHLORIDE 100 ml 100 ML 404 MG IVPB (09:23)
[2023-12-13] MEDS: SODIUM CHLORIDE 0.9 % (FLUSH) 10 ML SYRINGE IVF (09:23)
[2023-12-13] MEDS: 0.9 % SODIUM CHLORIDE 250 ml IV (09:23)
[2023-12-13] MEDS: PALONOSETRON 0.25 MG/5 ML inj IV (09:23)
[2024-01-03 08:05] LABS: Basophils Percent Auto 0.5 % (0.0-3.0); Eosinophils Percent Auto 2.9 % (0.0-7.0); Hematocrit 34.4 % (37.0-53.0); Hemoglobin* 11.3 gm/dL (13.5-17.5); Immature Granulocytes Pct Auto 0.3 %; Lymphocytes Percent Auto 24.1 % (20-44); Mean Corpuscular HGB Conc 33 gm/dL (32-36); Mean Corpuscular Hemoglobin 34 pg (26-34); Mean Corpuscular Volume 105 fL (80-100); Monocytes Percent Auto 17.8 % (0.0-11.0); Neutrophils Percent Auto 54.4 % (42.0-72.0); Platelet Count* 209 K/uL (140-440); RDW Coefficient of Variation % 14.2 % (11.5-15.5); Red Blood Count 3.29 m/uL (4.30-5.90); White Blood Count* 3.82 K/uL (4.50-11.00)
[2024-01-03 08:08] LABS: Slide Review Reflex No
[2024-01-03 08:22] LABS: Albumin* 4.3 g/dL (3.3-5.0); Chloride* 100 mmol/L (96-114)
[2024-01-03 08:23] LABS: Potassium* 3.8 mmol/L (3.6-5.1); Sodium* 136 mmol/L (135-149)
[2024-01-03 08:25] LABS: Alkaline Phosphatase* 86 U/L (40-150); Anion Gap 9 mEq/L (7-15); Aspartate Amino Transferase* 41 U/L (12-35); Bilirubin Total* 0.3 mg/dL (0.1-1.5); Blood Urea Nitrogen* 16 mg/dL (7-30); Carbon Dioxide* 27 mmol/L (20-32); Creatinine* 1.6 mg/dL (0.5-1.5); Estimated Glomerular Filt Rate 49 ml/min; Glucose* 104 mg/dL (60-115); Total Protein* 7.1 g/dL (6.0-8.3)
[2024-01-03 08:26] LABS: Alanine Aminotransferase* 26 U/L (4-50); Calcium* 9.3 mg/dL (8.4-10.6)
[2024-01-03] MEDS: PALONOSETRON 0.25 MG/5 ML inj IV (09:22)
[2024-01-03] MEDS: dexAMETHasone 10 MG/ML inj IVP (09:22)
[2024-01-03] MEDS: SODIUM CHLORIDE 0.9 % (FLUSH) 10 ML SYRINGE IVF (09:22)
[2024-01-03] MEDS: 0.9 % SODIUM CHLORIDE 500 ML IV (09:25)
== END 2024-01-22 23:59 | disposition home or self-care (01) ==
LOC: CCIC 07:45
PROVIDERS: Clinical Nurse Specialist; PCP Family Medicine; Referring Provider Family Medicine; Visit Provider Internal Medicine Hematology & Oncology
DX: C34.11 Malignant neoplasm of upper lobe, right bronchus or lung (principal); C79.51 Secondary malignant neoplasm of bone; K12.30 Oral mucositis (ulcerative), unspecified; R19.7 Diarrhea, unspecified
CPT/HCPCS: 36415; 80053; 85025; 87493; 93005; 93010; 96360; 96361; 96367; 96372; 96375; 96376; 96409; 96411; 96413; 99214; 99215; G0463; J1100; J2469; J3420; J7030; J7050; J9305

== ENCOUNTER 2024-02-01 12:34 | Outpatient (CLI) | payer OTHER, SELFPAY ==
--- NOTE | 2024-02-01 13:00 | CRLHL7_ITS ---
For Patients: As a result of the Century Cures Act, medical imaging exams and procedure reports are released immediately into your electronic medical record. You may view this report before your referring provider. If you have questions, please contact your health care provider. Indication: Lung cancer staging. Technique: Noncontrast sagittal T1, axial FLAIR, T2 turbo spine echo, and diffusion weighted images. Supplemental post contrast T1 weighted axial and coronal sequences are provided after administration of 30 mL Dotarem gadolinium-based IV contrast. Comparison: MRI 11/04/2023 Findings: Moderate generalized parenchymal volume loss.. The midline structures are centrally located with no evidence of shift. There are no suspicious intra or extra-axial fluid collections. No evidence of restricted diffusion to suggest acute ischemia. The pituitary gland, optic chiasm, pineal gland, and cerebellar tonsils are unremarkable. Incidental posterior fossa orlando cisterna magna, a normal variant. There are multiple scattered foci of T2 prolongation in the subcortical and periventricular white matter of both cerebral hemispheres that are nonspecific. A few stable T2 hyperintensities are also noted in the bilateral cerebellum and brainstem. No pathologic susceptibility artifacts. Expected flow voids in the cavernous carotids and basilar artery. No abnormal contrast enhancement involving the brain parenchyma, meninges, calvarium or skull base. Mild right mastoid effusion. Mild polypoid mucosal thickening in the left maxillary sinus. Impression: 1. No acute intracranial abnormalities. No evidence of intracranial metastasis. No significant changes compared to the prior exam dated 11/04/2023. 2. Scattered FLAIR hyperintensities within the supratentorial white matter, brainstem and brachium pontis, typical for a combination of chronic microvascular ischemic change and old demyelination/inflammation. Dictated by Haim Geronimo MD @ 02/03/2024 10:45:35 PM (Electronically Signed)
== END 2024-02-01 12:35 | disposition home or self-care (01) ==
LOC: MRI 12:34
PROVIDERS: PCP Family Medicine; Visit Provider Internal Medicine Hematology & Oncology
DX: C34.90 Malignant neoplasm of unspecified part of unspecified bronchus or lung (principal)
CPT/HCPCS: 70553; A9575

== ENCOUNTER 2024-02-14 14:39 | Emergency (ER) | payer OTHER, SELFPAY ==
[2024-02-14] VITALS (10 sets, daily range): BP systolic 133–146; BP diastolic 85–99; PULSE 78–95; RESP 22; TEMP 36.6; O2SAT 97–99; BMI 41.8
--- NOTE | 2024-02-14 15:15 | CRLHL7_ITS ---
For Patients: As a result of the Century Cures Act, medical imaging exams and procedure reports are released immediately into your electronic medical record. You may view this report before your referring provider. If you have questions, please contact your health care provider. INDICATION: Lower extremity swelling TECHNIQUE: Ultrasound venous duplex lower extremity bilateral. Compression venous exam was performed using atwood-scale, color Doppler, and spectral Doppler imaging. COMPARISON: None. FINDINGS: Sonographic imaging demonstrates the common femoral, deep femoral, superficial femoral, popliteal, posterior tibial and greater saphenous veins to be fully compressible with normal color Doppler blood flow in both lower extremities. IMPRESSION: Normal bilateral lower extremity venous ultrasound, no sign of deep venous thrombosis. Dictated by Christiano Palacio MD @ 02/14/2024 4:13:22 PM (Electronically Signed)
--- NOTE | 2024-02-14 15:15 | CRLHL7_ITS ---
For Patients: As a result of the Century Cures Act, medical imaging exams and procedure reports are released immediately into your electronic medical record. You may view this report before your referring provider. If you have questions, please contact your health care provider. Indication: SOB, history of lung cancer Technique: CTA chest, pulmonary embolism protocol, utilizing 95 mL Isovue 370. Comparison: CT abdomen/pelvis report from 01/12/2024 and PET-CT from November 10, 2023 Findings: No thyroid nodules. No pathologically enlarged lymph nodes throughout the thorax. The heart is at the upper limits of normal in size. No CT evidence of right heart strain. Small pericardial effusion. Coronary artery calcifications. The thoracic aorta measures approximately 4.5 centimeters in AP dimension. The main pulmonary artery is dilated 3.7 centimeters which can be seen with pulmonary arterial hypertension. There is no pulmonary embolism. Postsurgical changes of prior right chest thoracotomy with right middle and right lower lobectomies. Similar-appearing posttreatment changes with similar-appearing atelectatic changes/scarring seen in the bilateral lung bases, more prominent on the left. Otherwise, no new focal airspace consolidation, pleural effusion, or pneumothorax. No suspicious pulmonary nodules or masses. The airways are clear. The visualized upper abdomen is without acute abnormality. The osseous structures are unremarkable. Impression: 1. No pulmonary embolism. 2. Small pericardial effusion. 3. Similar-appearing atelectatic changes/scarring seen in the bilateral lung bases, more prominent on the left. Please note that all CT scans at this facility use dose modulation, iterative reconstruction, and/or weight-based dosing when appropriate to reduce radiation dose to as low as reasonably achievable. Dictated by Bear Mercer MD @ 02/14/2024 4:47:23 PM (Electronically Signed)
[2024-02-14 15:46] LABS: Basophils Absolute Auto 0.01 K/uL (0.00-0.30); Basophils Percent Auto 0.2 % (0.0-3.0); Eosinophils Absolute Auto 0.07 K/uL (0.00-0.50); Eosinophils Percent Auto 1.5 % (0.0-7.0); Hematocrit 29.4 % (37.0-53.0); Hemoglobin* 9.8 gm/dL (13.5-17.5); Immature Granulocytes Abs Auto 0.01 K/uL (0.00-0.30); Immature Granulocytes Pct Auto 0.2 %; Lymphocytes Percent Auto 14.3 % (20-44); Mean Corpuscular HGB Conc 33 gm/dL (32-36); Mean Corpuscular Hemoglobin 35 pg (26-34); Mean Corpuscular Volume 104 fL (80-100); Monocytes Percent Auto 15.9 % (0.0-11.0); Neutrophils Absolute Auto 3.07 K/uL (1.7-7.0); Neutrophils Percent Auto 67.9 % (42.0-72.0); Platelet Count* 199 K/uL (140-440); RDW Coefficient of Variation % 14.1 % (11.5-15.5); Red Blood Count 2.82 m/uL (4.30-5.90); White Blood Count* 4.53 K/uL (4.50-11.00)
[2024-02-14 15:52] LABS: Slide Review Reflex No
[2024-02-14 15:58] LABS: Chloride* 102 mmol/L (96-114); Potassium* 3.5 mmol/L (3.6-5.1); Sodium* 137 mmol/L (135-149)
[2024-02-14 16:01] LABS: Anion Gap 7 mEq/L (7-15); Carbon Dioxide* 28 mmol/L (20-32); Creatinine* 1.5 mg/dL (0.5-1.5); Est. Creatinine Clearance* 50.67; Estimated Glomerular Filt Rate 53 ml/min
[2024-02-14 16:02] LABS: Blood Urea Nitrogen* 16 mg/dL (7-30); Calcium* 9.5 mg/dL (8.4-10.6); Glucose* 85 mg/dL (60-115)
--- NOTE | 2024-02-14 16:06 | ED_ITS ---
HPI - General Adult General Date Seen: 02/14/24 Chief complaint: Lower Extremity Swelling Stated complaint: Adema lower legs, top of feet, headache Time Seen by Provider: 02/14/24 15:04 Source: patient Mode of arrival: ambulatory Limitations: no limitations History of Present Illness HPI narrative: Patient is a 58-year-old male with a history of metastatic non-small cell lung cancer on chemotherapy presenting to emergency department for shortness of breath and peripheral edema. He has noticed with past couple weeks some mild swelling in his lower extremities. His primary care provider is noticed to in total into were compression stockings. The swelling kept getting worse with any start notice or shortness of breath over the past day or 2. She describes shortness of breath mild but it is there. He was informed to come to the emergency department for evaluation. Is has no history of blood clots. Is denies chest pain, fevers, chills, weakness, numbness, abdominal pain. No says the swelling in his hands and his bilateral lower extremities. Right is worse than left they states right leg is usually more swollen than the left. States this much swelling is at 0 4 though. See no history of heart disease that he is aware of. He is not on any blood thinners. The chemotherapy medication he is on, Alimta and daily osimertinib, can cause peripheral edema. Also states he feels like he has some mild facial swelling. Denies any other symptoms. Related Data Home Medications ?Medication ?Instructions ?Recorded ?Confirmed albuterol sulfate 90 mcg/actuation 2 puff inhalation Q6H PRN 09/16/21 02/14/24 aerosol inhaler hydrochlorothiazide 12.5 mg tablet 12.5 mg PO QDAY 09/16/21 02/14/24 metformin 500 mg tablet,extended 1,000 mg PO DAILY 09/16/21 02/14/24 release 24 hr metoprolol tartrate 50 mg tablet 50 mg PO BID 09/16/21 02/14/24 simvastatin 10 mg tablet 10 mg PO QPM 09/16/21 02/14/24 ibuprofen 800 mg tablet 800 mg PO Q8H PRN 04/01/22 02/14/24 lisinopril 20 mg tablet 20 mg PO DAILY 10/05/22 02/14/24 aspirin 81 mg tablet,delayed 81 mg PO QDAY 11/17/22 02/14/24 release (Adult Low Dose Aspirin) fluticasone 250 mcg-salmeterol 50 1 inh inhalation BID 04/12/23 02/14/24 mcg/dose blistr powdr for inhalation (Advair Diskus) Magic Mouthwash 5 ml PO QID PRN 10/25/23 02/14/24 (Lidocaine/Benadryl/Maalox) 120 mL suspension cephalexin 500 mg capsule 500 mg PO QID 01/03/24 02/08/24 osimertinib 80 mg tablet (Tagrisso) 80 mg PO DAILY 02/14/24 02/14/24 Previous Rx's ?Medication ?Instructions ?Recorded folic acid 1 mg tablet 1 mg PO QDAY #90 tabs 04/04/23 ondansetron 4 mg disintegrating 4 mg PO Q6H PRN nausea and 07/13/23 tablet vomiting #90 tabs prochlorperazine maleate 10 mg 10 mg PO TID PRN nausea #45 tabs 07/13/23 tablet (Compazine) osimertinib 80 mg tablet 80 mg PO QDAY #30 tabs 10/26/23 potassium chloride 20 mEq 20 meq PO BID #60 tabs 12/22/23 tablet,extended release Allergies Allergy/AdvReac Type Severity Reaction Status Date / Time No Known Drug Allergies Allergy Verified 02/14/24 14:56 Review of Systems Status of ROS: Reports: 10 or more systems reviewed and unremarkable except as noted in History and below [facility] Medical History (Updated 02/14/24 @ 17:19 by Noe Pearce, DO) S/P radiation therapy ?Z92.3 - Personal history of irradiation (ICD-10) Fatty liver ?K76.0 - Fatty (change of) liver, not elsewhere classified (ICD-10) Infection due to severe acute respiratory syndrome coronavirus 2 (SARS-CoV-2) ?U07.1 - COVID-19 (ICD-10) Metastatic non-small cell lung cancer ?C34.90 - Malignant neoplasm of unspecified part of unspecified bronchus or lung (ICD-10) Surgical History (Updated 09/15/21 @ 21:54 by Celeste Ny, [employer]) History of lobectomy of lung ?Z90.2 - Acquired absence of lung [part of] (ICD-10) Social History Smoking Status: Never smoker Do you use any of these nicotine containing products: None How often do you have a drink containing alcohol: never How often do you have six or more drinks on one occasion: Never AUDIT-C Alcohol total score: 0 Non-prescribed substance use: denies use Exam Narrative: Exam Narrative: Const: Well-nourished, Well-developed, in mild distress Eyes: PERRL, no conjunctival injection, and symmetrical lids HENT: Atraumatic external nose and ears. Moist mucous membranes. Neck: Symmetric, trachea midline, No thyromegaly. CVS: RRR, No murmurs or gallops. Peripheral pulses 2+ and equal in all extremities Extremities: +2 peripheral edema noted to right lower extremity and +1 to the left. Mild swelling also noticed to bilateral hands RESP: Unlabored respiratory effort. Clear to auscultation bilaterally. GI: Nontender/Nondistended, No rebound or guarding. MSK:Extremities w/o deformity, Normal Active ROM Skin: Warm, Dry. No rashes or lesions. Neuro: Normal Muscle tone, No focal neurological deficits. Psych: Awake, Alert, & Oriented x3. Appropriate mood and affect. Const: Vital Signs, click to edit/add: Vital Signs - 24 hr 02/14/24 14:49 Temperature 97.8 F Pulse Rate [Right Pulse Oximeter] 78 Respiratory Rate 22 Blood Pressure [Ri ght Upper Arm] 137/85 Pulse Oximetry 98 Oxygen Delivery Me thod Room Air Course Vital Signs Vital signs: Initial Vital Signs Temperature 97.8 F 02/14/24 14:49 Temperature Source Temporal Artery Scan 02/14/24 14:49 Pulse Rate 78 02/14/24 14:49 Pulse Rhythm Regular 02/14/24 14:49 Pulse Strength 3+ Normal 02/14/24 14:49 Respiratory Rate 22 02/14/24 14:49 Blood Pressure 137/85 02/14/24 14:49 Blood Pressure Mean 102 02/14/24 14:49 Blood Pressure Position Sitting 02/14/24 14:49 Pulse Oximetry 98 02/14/24 14:49 Oxygen Delivery Method Room Air 02/14/24 14:49 Vital Signs Temperature 97.8 F 02/14/24 14:49 Pulse Rate 78 02/14/24 14:49 Respiratory Rate 22 02/14/24 14:49 Blood Pressure 137/85 02/14/24 14:49 Pulse Oximetry 98 02/14/24 14:49 Oxygen Delivery Method Room Air 02/14/24 14:49 Temperature 97.8 F 02/14/24 14:49 Pulse Rate 78 02/14/24 14:49 Respiratory Rate 22 02/14/24 14:49 Blood Pressure 137/85 02/14/24 14:49 Pulse Oximetry 98 02/14/24 14:49 Oxygen Delivery Method Room Air 02/14/24 14:49 Medications Administered Medications: Discontinued Medications Generic Name Dose Route Start Last Admin Trade Name Jad PRN Reason Stop Dose Admin Acetaminophen 1,000 mg 02/14/24 16:41 02/14/24 16:47 Acetaminophen 500 Mg Tablet PO 02/14/24 16:42 1,000 mg ONCE ONE Administration Medical Decision Making MDM Narrative Medical decision making narrative: Patient is a 58-year-old cancer patient on chemotherapy presenting for edema and shortness of breath. The differential diagnosis of shortness of breath is broad and includes common etiologies such as COPD, asthma, pneumonia, viral syndrome, etc. More serious etiologies considered include PE, CHF, coronary artery disease, pneumothorax, aortic dissection, aortic aneurysm. He I am concerned about blood clots considering his current cancer history with chemotherapy and will do bilateral lower leg ultrasound. Will also do a CTA scan of the chest look for signs of PE. The source for signs pneumonia or pneumothorax. EKG and troponin ordered for signs of ACS. His edema may also be related to his chemotherapy medication. BNP also added for possible heart failure. COVID/flu/RSV test ordered along with a CBC and BMP. Lower extremity ultrasound showed no signs of a DVT. CBC, BMP, BNP, EKG, troponin all showed no concerning findings. His hemoglobin slightly lower than normal but with no signs of bleeding this seems likely to be related to his chemotherapy. He is nauseated criteria for transfusion. As the shortness of breath has been going on for several days under not believe is necessary to repeat the troponin at this time. Viral swabs were also negative. He did start having headache and some Tylenol was given. CT reviewed by myself and the radiologist shows no signs of pneumonia or PE. There is a small pericardial effusion. Concerning his otherwise stable vital signs impression minimal symptoms I do not believe it is necessary to have this drained immediately. Do not believe he needs to be observed and he is safe for discharge. I did inform to have close follow-up with his outpatient providers which she is agreeable to. There is a chance that all his swelling and edema is related to his chemotherapy drugs. On my review vital signs are stable throughout time in in the emergency department. Oximetry stayed in the mid to high 90s. nursing informatics analyst showed no concerning arrhythmias. Lab Data Labs: Lab Results 02/14/24 02/14/24 Range/Units 15:15 15:30 WBC 4.53 (4.50-11.00) K/uL RBC 2.82 L (4.30-5.90) m/uL Hgb 9.8 L (13.5-17.5) gm/dL Hct 29.4 L (37.0-53.0) % MCV 104 H (80-100) fL MCH 35 H (26-34) pg MCHC 33 (32-36) gm/dL RDW Coeff of Monica 14.1 (11.5-15.5) % Plt Count 199 (140-440) K/uL Neut % (Auto) 67.9 (42.0-72.0) % Lymph % (Auto) 14.3 L (20-44) % [place] % (Auto) 15.9 H (0.0-11.0) % Eos % (Auto) 1.5 (0.0-7.0) % Baso % (Auto) 0.2 (0.0-3.0) % Neut # (Auto) 3.07 (1.7-7.0) K/uL Lymph # (Auto) 0.60 L (0.90-2.90) K/uL [place] # (Auto) 0.70 (0.00-0.90) K/UL Eos # (Auto) 0.07 (0.00-0.50) K/uL Baso # (Auto) 0.01 (0.00-0.30) K/uL Abs Immat Gran (auto) 0.01 (0.00-0.30) K/uL Imm/Tot Granulo (auto) 0.2 % Sodium 137 (135-149) mmol/L Potassium 3.5 L (3.6-5.1) mmol/L Chloride 102 (96-114) mmol/L Carbon Dioxide 28 (20-32) mmol/L Anion Gap 7 (7-15) mEq/L BUN 16 (7-30) mg/dL Creatinine 1.5 (0.5-1.5) mg/dL Estimated Creat Clear 50.67 Estimated GFR 53 ml/min Glucose 85 (60-115) mg/dL Calcium 9.5 (8.4-10.6) mg/dL NT-Pro-B Natriuret Pep 109 pg/mL SARS-CoV-2 (PCR) Negative SARS-CoV-2 (Negative) Influenza Type A (PCR) Negative PCR FLU A (Negative) Influenza Type B (PCR) Negative PCR FLU B (Negative) RSV (PCR) Negative PCR RSV (Negative) POC Troponin I 0.00 L (0.01-0.04) ng/ml Imaging Data Venous US: Attestation: I have reviewed the pertinent imaging results. Radiologist's impression: Normal bilateral lower extremity venous ultrasound, no sign of deep venous thrombosis. Dictated by Christiano Palacio MD @ 02/14/2024 4:13:22 PM CTA chest: Attestation: I have reviewed the pertinent imaging results. Radiologist's impression: 1. No pulmonary embolism. 2. Small pericardial effusion. 3. Similar-appearing atelectatic changes/scarring seen in the bilateral lung bases, more prominent on the left. Please note that all CT scans at this facility use dose modulation, iterative reconstruction, and/or weight-based dosing when appropriate to reduce radiation dose to as low as reasonably achievable. Dictated by Bear Mercer MD @ 02/14/2024 4:47:23 PM ECG Data Attestation: I personally reviewed and interpreted this ECG as follows: Prior ECG tracings: available for review Interpretation: Normal sinus rhythm with a rate of 84 beats per minute, normal intervals, normal axis, no ST or T-wave abnormalities. Appears similar previous EKGs on file Discharge Plan Discharge Clinical Impression: Pericardial effusion, Edema, peripheral Patient Disposition: Home, Self-Care Condition: Stable Instructions: Edema (ED) Additional Instructions: Your lab work shows no concerning findings. CT scan did show a do have a small pericardial effusion which is just some fluid around the heart. This could be related to your lung cancer or your chemotherapy. Your chemotherapy could also be causing your swelling. You are also slightly more anemic than normal. I recommend close follow-up with your primary care and oncology providers within the next week. Return for new or worsening symptoms. Prescriptions: No Action metformin 500 mg tablet extended release 24 hr 1,000 mg PO DAILY simvastatin 10 mg tablet 10 mg PO QPM hydrochlorothiazide 12.5 mg tablet 12.5 mg PO QDAY metoprolol tartrate 50 mg tablet 50 mg PO BID albuterol sulfate 90 mcg/actuation HFA aerosol inhaler 2 puff inhalation Q6H PRN aspirin [Adult Low Dose Aspirin] 81 mg tablet,delayed release (DR/EC) 81 mg PO QDAY folic acid 1 mg tablet 1 mg PO QDAY Qty: 90 3RF fluticasone propion-salmeterol [Advair Diskus] 250-50 mcg/dose blister with device 1 inh inhalation BID ibuprofen 800 mg tablet 800 mg PO Q8H PRN lisinopril 20 mg tablet 20 mg PO DAILY Magic Mouthwash (Lidocaine/Benadryl/Maalox) 120 mL suspension 5 ml PO QID PRN Rx Instructions: Lidocaine Viscous 2 % mucosal solution 40 mL; Maalox 200 mg-200 mg-20 mg/5 mL oral suspension 40 mL; Benadryl 12.5 mg/5 mL oral elixir 40 mL; Per 120 mL SWISH AND SPIT. MAY COMPOUND IF FIRST PRODUCT IS NOT AVAILABLE. osimertinib 80 mg tablet 80 mg PO QDAY Qty: 30 3RF Rx Instructions: Take 1 tab 80 mg every day. cephalexin 500 mg capsule 500 mg PO QID Tagrisso 80 mg tablet 80 mg PO DAILY ondansetron 4 mg tablet,disintegrating 4 mg PO Q6H PRN (Reason: nausea and vomiting) Qty: 90 1RF Rx Instructions: Take if compazine (prochlorperazine) is ineffective in controlling chemotherapy related nausea. Start 24 hours after chemo. prochlorperazine maleate [Compazine] 10 mg tablet 10 mg PO TID PRN (Reason: nausea) Qty: 45 1RF Rx Instructions: Take #1 for chemotherapy related nausea potassium chloride 20 mEq tablet extended release 20 meq PO BID Qty: 60 1RF Follow Up/Referrals: Jus Tyler MD [Primary Care Provider] - Stand Alone Forms: [facility] Info Instructions
[2024-02-14 16:16] LABS: NT Pro B Type NatriureticPept* 109 pg/mL
[2024-02-14 16:28] LABS: PCR FLU A Negative PCR FLU A (Negative); PCR FLU B Negative PCR FLU B (Negative); PCR RSV Negative PCR RSV (Negative); SARS PCR* Negative SARS-CoV-2 (Negative)
[2024-02-14] MEDS: ACETAMINOPHEN 500 MG TABLET 1000 MG PO (16:47)
== END 2024-02-14 17:27 | disposition home or self-care (01) ==
PROVIDERS: Emergency Provider Student in an Organized Health Care Education/Training Program; PCP Family Medicine
DX: I31.39 Other pericardial effusion (noninflammatory) (principal); R60.9 Edema, unspecified
CPT/HCPCS: 36415; 71275; 80048; 83880; 84484; 85025; 87631; 93005; 93970; 99283; 99284; 99285; A9270; Q9967

== ENCOUNTER 2024-05-24 15:00 | Outpatient (CLI) | payer OTHER, SELFPAY ==
--- NOTE | 2024-05-24 15:30 | CRLHL7_ITS ---
For Patients: As a result of the 21st Century Cures Act, medical imaging exams and procedure reports are released immediately into your electronic medical record. You may view this report before your referring provider. If you have questions, please contact your health care provider. EXAM: FDG PET-CT Skull Base to Thighs CLINICAL INFORMATION: 58-year-old man with history of non-small cell lung cancer. Subsequent treatment response. TECHNIQUE: Radiopharmaceutical: 18F-fluorodeoxyglucose (18F-FDG) Dose: 12.19 milliCurie. Blood glucose: 82 mg/dL. Image acquisition: At approximately 60 minutes following IV tracer administration via a right hand vein, positron emission tomography was performed from the skull base through the mid thigh. Non-contrast low-dose helical CT imaging was performed over the same range without breath-hold for attenuation correction of PET images and anatomic correlation; it is neither sufficient, nor should it be substituted for diagnostic purposes. COMPARISON: FDG PET-CT 11/10/2023. [place] FDG PET-CT report 01/31/2024. FINDINGS: Mediastinal blood pool FDG uptake: SUVMax 3.1 (image 113) Liver background parenchymal FDG uptake: SUVMax 3.8 (image 146) HEAD AND NECK: No abnormal FDG uptake in the imaged head and neck. Partial opacification of bilateral maxillary sinuses. CHEST: Ports and devices: None. Lungs: Similar posttreatment changes in the left lower lobe. Right middle lobectomy. No abnormal focal increased FDG uptake. Pleura: No abnormal FDG uptake. Thoracic lymph Nodes: No abnormal FDG uptake. Mediastinum: No abnormal FDG uptake. Coronary artery calcifications. Atherosclerotic calcifications of the thoracic aorta. Cardiomegaly. Breasts/Chest Wall: No abnormal FDG uptake. ABDOMEN/PELVIS: Liver/biliary system: No abnormal FDG uptake. Pancreas: No abnormal FDG uptake. Spleen: No abnormal FDG uptake. Scattered calcified splenic granulomas. Adrenal Glands: No abnormal FDG uptake. Kidneys: No abnormal FDG uptake. Bowel: Diffuse bowel loop uptake likely secondary to metformin. Mesentery, Omentum and Peritoneum: No abnormal FDG uptake. Atherosclerotic calcifications. Pelvic Organs: No abnormal FDG uptake. Prostatomegaly. Abdominopelvic lymph Nodes: No abnormal FDG uptake. Musculoskeletal: No abnormal FDG uptake. Multilevel degenerative changes in the spine. IMPRESSION: 1. Similar posttreatment changes in the left lower lobe of the lung. 2. No evidence of metabolically active malignancy. Dictated by Jhon Cheatham MD @ 05/25/2024 3:23:18 PM (Electronically Signed)
== END 2024-05-24 15:01 | disposition home or self-care (01) ==
LOC: RAD 15:01
PROVIDERS: PCP Family Medicine; Visit Provider Internal Medicine Hematology & Oncology
DX: C34.11 Malignant neoplasm of upper lobe, right bronchus or lung (principal)
CPT/HCPCS: 78815; A9552

== ENCOUNTER 2024-07-03 08:15 | Outpatient (RCR) | payer OTHER, SELFPAY ==
[2024-01-24 08:10] LABS: Basophils Percent Auto 0.2 % (0.0-3.0); Eosinophils Percent Auto 3.1 % (0.0-7.0); Hemoglobin* 11.2 gm/dL (13.5-17.5); Immature Granulocytes Pct Auto 0.2 %; Lymphocytes Percent Auto 16.2 % (20-44); Mean Corpuscular HGB Conc 33 gm/dL (32-36); Mean Corpuscular Hemoglobin 34 pg (26-34); Mean Corpuscular Volume 104 fL (80-100); Monocytes Percent Auto 14.6 % (0.0-11.0); Neutrophils Percent Auto 65.7 % (42.0-72.0); Platelet Count* 196 K/uL (140-440); RDW Coefficient of Variation % 14.1 % (11.5-15.5); Red Blood Count 3.26 m/uL (4.30-5.90); White Blood Count* 4.25 K/uL (4.50-11.00)
[2024-01-24 08:12] LABS: Slide Review Reflex No
[2024-01-24 08:13] VITALS: BP 111/73; PULSE 82; RESP 16; TEMP 36.6; O2SAT 97
[2024-01-24 08:26] LABS: Albumin* 4.2 g/dL (3.3-5.0); Chloride* 104 mmol/L (96-114); Potassium* 3.8 mmol/L (3.6-5.1); Sodium* 137 mmol/L (135-149)
[2024-01-24 08:29] LABS: Alanine Aminotransferase* 31 U/L (4-50); Alkaline Phosphatase* 91 U/L (40-150); Anion Gap 6 mEq/L (7-15); Aspartate Amino Transferase* 34 U/L (12-35); Bilirubin Total* 0.2 mg/dL (0.1-1.5); Blood Urea Nitrogen* 17 mg/dL (7-30); Carbon Dioxide* 27 mmol/L (20-32); Creatinine* 1.5 mg/dL (0.5-1.5); Estimated Glomerular Filt Rate 53 ml/min; Glucose* 126 mg/dL (60-115)
[2024-01-24 08:30] LABS: Calcium* 9.3 mg/dL (8.4-10.6)
[2024-01-24] MEDS: dexAMETHasone 10 MG/ML inj IVP (09:18)
[2024-01-24] MEDS: PALONOSETRON 0.25 MG/5 ML inj IV (09:20)
[2024-01-24] MEDS: SODIUM CHLORIDE 0.9 % (FLUSH) 10 ML SYRINGE IVF (10:37)
[2024-01-24] MEDS: 0.9 % SODIUM CHLORIDE 500 ML IV (10:37)
--- NOTE | 2024-03-02 15:16 | URNOTE ---
Pemetresed (J9323),Palonosetron (J2469), and Dexamethasone (J1100) and Cyanocobalamin (J3420). does not require prior authorization per [facility] (active plan) checked site 03/02/24 at 1500.
[2024-03-06 08:51] VITALS: BP 129/83; PULSE 66; RESP 16; TEMP 36.2; O2SAT 98
[2024-03-06 09:01] LABS: Albumin* 4.1 g/dL (3.3-5.0)
[2024-03-06 09:02] LABS: Basophils Percent Auto 0.5 % (0.0-3.0); Chloride* 103 mmol/L (96-114); Eosinophils Percent Auto 1.8 % (0.0-7.0); Hemoglobin* 11.5 gm/dL (13.5-17.5); Lymphocytes Percent Auto 17.8 % (20-44); Mean Corpuscular HGB Conc 33 gm/dL (32-36); Mean Corpuscular Hemoglobin 34 pg (26-34); Mean Corpuscular Volume 103 fL (80-100); Neutrophils Percent Auto 65.9 % (42.0-72.0); Platelet Count* 141 K/uL (140-440); Potassium* 3.5 mmol/L (3.6-5.1); RDW Coefficient of Variation % 13.1 % (11.5-15.5); Red Blood Count 3.41 m/uL (4.30-5.90); Sodium* 137 mmol/L (135-149); White Blood Count* 4.44 K/uL (4.50-11.00)
[2024-03-06 09:04] LABS: Anion Gap 7 mEq/L (7-15); Aspartate Amino Transferase* 25 U/L (12-35); Bilirubin Total* 0.6 mg/dL (0.1-1.5); Carbon Dioxide* 27 mmol/L (20-32); Creatinine* 1.5 mg/dL (0.5-1.5); Est. Creatinine Clearance* 48.96; Estimated Glomerular Filt Rate 53 ml/min; Total Protein* 6.7 g/dL (6.0-8.3)
[2024-03-06 09:05] LABS: Alanine Aminotransferase* 18 U/L (4-50); Alkaline Phosphatase* 74 U/L (40-150); Blood Urea Nitrogen* 20 mg/dL (7-30); Calcium* 9.1 mg/dL (8.4-10.6); Glucose* 117 mg/dL (60-115); Slide Review Reflex No
--- NOTE | 2024-03-06 09:27 | ONC.NURNOTE ---
Addendum entered by Nalini Vincent RN 03/06/24 09:40: Today's assessment: pt is breathing ok and has resumed his walking exercise. He is still a little puffy in his hands, ankles, and around his eyes. No fevers, no N/V/D. Original Note: Pt present at [facility] today for labs and chemo. Upon interview pt shared that he was in the ER on 02/13 with significant swelling (facial and upper and lower extremities) and shortness of breath. CT was done and a small pericardial effusion was noted. Pt was discharged and has since followed up with PCP and had an ECHO. Of note, the timeline of the past month is as follows: 01/24/2024 - received chemo 02/08/2024 - saw Dr. Villarreal and noted that pt appeared swollen/puffy. 02/14/2024 - medical message w/ PCP re: swelling and was instructed to decrease sodium, wear compression stockings, elevate LE, and go for walks. 02/14/2024 - went to ER (see documentation) 03/02/2024 - saw PCP at [facility] 03/05/2024 - ECHO at [facility] Chemo held today. [facility] documentation printed for . Kwasi will see Dr. Villarreal and is scheduled for treatment tomorrow, 03/07/2024. Pt verbalized understanding.
[2024-03-27 08:03] LABS: Basophils Absolute Auto 0.01 K/uL (0.00-0.30); Basophils Percent Auto 0.2 % (0.0-3.0); Eosinophils Absolute Auto 0.12 K/uL (0.00-0.50); Eosinophils Percent Auto 2.2 % (0.0-7.0); Hemoglobin* 12.6 gm/dL (13.5-17.5); Immature Granulocytes Abs Auto 0.01 K/uL (0.00-0.30); Immature Granulocytes Pct Auto 0.2 %; Lymphocytes Absolute Auto 1.11 K/uL (0.90-2.90); Lymphocytes Percent Auto 20.1 % (20-44); Mean Corpuscular HGB Conc 34 gm/dL (32-36); Mean Corpuscular Hemoglobin 34 pg (26-34); Mean Corpuscular Volume 99 fL (80-100); Monocytes Percent Auto 14.1 % (0.0-11.0); Neutrophils Percent Auto 63.2 % (42.0-72.0); Platelet Count* 183 K/uL (140-440); RDW Coefficient of Variation % 12.1 % (11.5-15.5); Red Blood Count 3.73 m/uL (4.30-5.90); White Blood Count* 5.53 K/uL (4.50-11.00)
[2024-03-27 08:06] LABS: Slide Review Reflex No
[2024-03-27 08:20] LABS: Albumin* 4.3 g/dL (3.3-5.0); Chloride* 101 mmol/L (96-114); Potassium* 4.1 mmol/L (3.6-5.1); Sodium* 135 mmol/L (135-149)
[2024-03-27 08:22] LABS: Creatinine* 1.3 mg/dL (0.5-1.5); Est. Creatinine Clearance* 58.46; Estimated Glomerular Filt Rate 63 ml/min
[2024-03-27 08:23] LABS: Alanine Aminotransferase* 21 U/L (4-50); Alkaline Phosphatase* 85 U/L (40-150); Anion Gap 7 mEq/L (7-15); Aspartate Amino Transferase* 27 U/L (12-35); Bilirubin Total* 0.4 mg/dL (0.1-1.5); Blood Urea Nitrogen* 22 mg/dL (7-30); Carbon Dioxide* 27 mmol/L (20-32); Glucose* 109 mg/dL (60-115); Total Protein* 7.2 g/dL (6.0-8.3)
[2024-03-27 08:24] LABS: Calcium* 9.7 mg/dL (8.4-10.6)
[2024-03-27] MEDS: 0.9 % SODIUM CHLORIDE 500 ML IV (09:15)
[2024-03-27] MEDS: SODIUM CHLORIDE 0.9 % (FLUSH) 10 ML SYRINGE IVF (09:15)
[2024-03-27] MEDS: PALONOSETRON 0.25 MG/5 ML inj IV (09:18)
[2024-03-27] MEDS: dexAMETHasone 10 MG/ML inj IVP (09:20)
[2024-03-27] MEDS: CYANOCOBALAMIN 1,000 MCG/ML inj 1000 MCG IM (09:47)
[2024-04-23 12:30] LABS: Eosinophils Absolute Auto 0.04 K/uL (0.00-0.50); Eosinophils Percent Auto 0.9 % (0.0-7.0); Hematocrit 37.6 % (37.0-53.0); Hemoglobin* 12.4 gm/dL (13.5-17.5); Immature Granulocytes Abs Auto 0.02 K/uL (0.00-0.30); Immature Granulocytes Pct Auto 0.4 %; Lymphocytes Absolute Auto 0.96 K/uL (0.90-2.90); Lymphocytes Percent Auto 20.4 % (20-44); Mean Corpuscular HGB Conc 33 gm/dL (32-36); Mean Corpuscular Hemoglobin 33 pg (26-34); Mean Corpuscular Volume 101 fL (80-100); Monocytes Percent Auto 12.8 % (0.0-11.0); Neutrophils Absolute Auto 3.08 K/uL (1.7-7.0); Neutrophils Percent Auto 65.5 % (42.0-72.0); Platelet Count* 170 K/uL (140-440); RDW Coefficient of Variation % 13.8 % (11.5-15.5); Red Blood Count 3.73 m/uL (4.30-5.90)
[2024-04-23 12:31] LABS: Slide Review Reflex No
[2024-04-23 12:42] LABS: Albumin* 4.3 g/dL (3.3-5.0); Chloride* 99 mmol/L (96-114); Potassium* 3.6 mmol/L (3.6-5.1); Sodium* 138 mmol/L (135-149)
[2024-04-23 12:44] LABS: Anion Gap 9 mEq/L (7-15); Bilirubin Total* 0.6 mg/dL (0.1-1.5); Carbon Dioxide* 30 mmol/L (20-32); Creatinine* 1.4 mg/dL (0.5-1.5); Est. Creatinine Clearance* 54.29; Estimated Glomerular Filt Rate 58 ml/min
[2024-04-23 12:45] LABS: Alanine Aminotransferase* 24 U/L (4-50); Alkaline Phosphatase* 80 U/L (40-150); Aspartate Amino Transferase* 28 U/L (12-35); Blood Urea Nitrogen* 22 mg/dL (7-30); Calcium* 9.3 mg/dL (8.4-10.6); Glucose* 106 mg/dL (60-115)
[2024-04-23] MEDS: SODIUM CHLORIDE 0.9 % (FLUSH) 10 ML SYRINGE IVF (14:18)
[2024-04-23] MEDS: PALONOSETRON 0.25 MG/5 ML inj IV (14:19)
[2024-05-14 08:20] VITALS: BP 107/72; PULSE 70; RESP 16; TEMP 36.2; O2SAT 96
[2024-05-14 08:26] LABS: Basophils Percent Auto 0.5 % (0.0-3.0); Eosinophils Percent Auto 3.7 % (0.0-7.0); Hematocrit 35.3 % (37.0-53.0); Hemoglobin* 12.1 gm/dL (13.5-17.5); Immature Granulocytes Pct Auto 0.2 %; Lymphocytes Percent Auto 24.6 % (20-44); Mean Corpuscular HGB Conc 34 gm/dL (32-36); Mean Corpuscular Hemoglobin 34 pg (26-34); Mean Corpuscular Volume 100 fL (80-100); Monocytes Percent Auto 18.4 % (0.0-11.0); Neutrophils Percent Auto 52.6 % (42.0-72.0); Platelet Count* 256 K/uL (140-440); Red Blood Count 3.53 m/uL (4.30-5.90); White Blood Count* 4.03 K/uL (4.50-11.00)
[2024-05-14 08:28] LABS: Slide Review Reflex No
[2024-05-14 08:39] LABS: Albumin* 4.2 g/dL (3.3-5.0); Chloride* 98 mmol/L (96-114); Sodium* 136 mmol/L (135-149)
[2024-05-14 08:40] LABS: Potassium* 3.7 mmol/L (3.6-5.1)
[2024-05-14 08:42] LABS: Alanine Aminotransferase* 24 U/L (4-50); Alkaline Phosphatase* 107 U/L (40-150); Anion Gap 8 mEq/L (7-15); Aspartate Amino Transferase* 30 U/L (12-35); Bilirubin Total* 0.4 mg/dL (0.1-1.5); Blood Urea Nitrogen* 18 mg/dL (7-30); Calcium* 9.2 mg/dL (8.4-10.6); Carbon Dioxide* 30 mmol/L (20-32); Creatinine* 1.5 mg/dL (0.5-1.5); Est. Creatinine Clearance* 48.96; Estimated Glomerular Filt Rate 53 ml/min; Glucose* 101 mg/dL (60-115); Total Protein* 7.1 g/dL (6.0-8.3)
[2024-05-14] MEDS: PALONOSETRON 0.25 MG/5 ML inj IV (09:28)
[2024-05-14] MEDS: dexAMETHasone 10 MG in 0.9 % SODIUM CHLORIDE 100 ml 100 ML 404 MG IVPB (09:28)
[2024-05-14] MEDS: 0.9 % SODIUM CHLORIDE 500 ML IV (09:31)
[2024-05-14] MEDS: SODIUM CHLORIDE 0.9 % (FLUSH) 10 ML SYRINGE IVF (09:31)
[2024-06-06 09:27] LABS: Basophils Percent Auto 0.4 % (0.0-3.0); Eosinophils Percent Auto 2.5 % (0.0-7.0); Hematocrit 35.9 % (37.0-53.0); Hemoglobin* 12.1 gm/dL (13.5-17.5); Immature Granulocytes Pct Auto 0.4 %; Lymphocytes Percent Auto 21.9 % (20-44); Mean Corpuscular HGB Conc 34 gm/dL (32-36); Mean Corpuscular Hemoglobin 34 pg (26-34); Mean Corpuscular Volume 101 fL (80-100); Monocytes Percent Auto 10.9 % (0.0-11.0); Neutrophils Percent Auto 63.9 % (42.0-72.0); Platelet Count* 223 K/uL (140-440); RDW Coefficient of Variation % 14.9 % (11.5-15.5); Red Blood Count 3.56 m/uL (4.30-5.90); White Blood Count* 4.48 K/uL (4.50-11.00)
[2024-06-06 09:48] LABS: Slide Review Reflex No
[2024-06-06 09:50] LABS: Albumin* 4.3 g/dL (3.3-5.0); Chloride* 104 mmol/L (96-114); Sodium* 139 mmol/L (135-149)
[2024-06-06 09:51] LABS: Potassium* 3.5 mmol/L (3.6-5.1)
[2024-06-06 09:53] LABS: Alanine Aminotransferase* 28 U/L (4-50); Anion Gap 9 mEq/L (7-15); Aspartate Amino Transferase* 35 U/L (12-35); Bilirubin Total* 0.5 mg/dL (0.1-1.5); Blood Urea Nitrogen* 12 mg/dL (7-30); Carbon Dioxide* 26 mmol/L (20-32); Creatinine* 1.4 mg/dL (0.5-1.5); Est. Creatinine Clearance* 52.46; Estimated Glomerular Filt Rate 58 ml/min; Total Protein* 7.1 g/dL (6.0-8.3)
[2024-06-06 09:54] LABS: Alkaline Phosphatase* 91 U/L (40-150); Calcium* 9.1 mg/dL (8.4-10.6); Glucose* 132 mg/dL (60-115)
[2024-06-06] MEDS: PALONOSETRON 0.25 MG/5 ML inj IV (10:53)
[2024-06-06] MEDS: SODIUM CHLORIDE 0.9 % (FLUSH) 10 ML SYRINGE IVF (10:53)
[2024-06-06] MEDS: 0.9 % SODIUM CHLORIDE 250 ml IV (11:06)
[2024-06-06] MEDS: dexAMETHasone 10 MG in 0.9 % SODIUM CHLORIDE 100 ml 100 ML 404 MG IVPB (11:06)
[2024-07-03 09:03] LABS: Basophils Absolute Auto 0.01 K/uL (0.00-0.30); Basophils Percent Auto 0.2 % (0.0-3.0); Eosinophils Absolute Auto 0.07 K/uL (0.00-0.50); Eosinophils Percent Auto 1.4 % (0.0-7.0); Hematocrit 33.8 % (37.0-53.0); Hemoglobin* 11.3 gm/dL (13.5-17.5); Immature Granulocytes Abs Auto 0.01 K/uL (0.00-0.30); Immature Granulocytes Pct Auto 0.2 %; Lymphocytes Percent Auto 17.2 % (20-44); Mean Corpuscular HGB Conc 33 gm/dL (32-36); Mean Corpuscular Hemoglobin 34 pg (26-34); Mean Corpuscular Volume 102 fL (80-100); Monocytes Percent Auto 14.2 % (0.0-11.0); Neutrophils Absolute Auto 3.25 K/uL (1.7-7.0); Neutrophils Percent Auto 66.8 % (42.0-72.0); Platelet Count* 169 K/uL (140-440); RDW Coefficient of Variation % 14.9 % (11.5-15.5); White Blood Count* 4.87 K/uL (4.50-11.00)
[2024-07-03 09:09] LABS: Slide Review Reflex No
[2024-07-03 09:19] LABS: Chloride* 100 mmol/L (96-114)
[2024-07-03 09:20] LABS: Albumin* 4.1 g/dL (3.3-5.0); Potassium* 3.4 mmol/L (3.6-5.1); Sodium* 137 mmol/L (135-149)
[2024-07-03 09:22] LABS: Alanine Aminotransferase* 22 U/L (4-50); Anion Gap 8 mEq/L (7-15); Aspartate Amino Transferase* 41 U/L (12-35); Blood Urea Nitrogen* 19 mg/dL (7-30); Carbon Dioxide* 29 mmol/L (20-32); Creatinine* 1.7 mg/dL (0.5-1.5); Est. Creatinine Clearance* 44.15; Estimated Glomerular Filt Rate 45 ml/min
[2024-07-03 09:23] LABS: Alkaline Phosphatase* 79 U/L (40-150); Bilirubin Total* 0.7 mg/dL (0.1-1.5); Calcium* 9.1 mg/dL (8.4-10.6); Glucose* 113 mg/dL (60-115)
--- NOTE | 2024-10-09 10:32 | W.ED.EKGINT ---
EKG Interpretation EKG Data Attestation: I personally reviewed and interpreted this ECG as follows: Date of EKG Tracin10/03/24 EKG interpretation date: 10/09/24 Prior EKG tracings: available for review Interpretation: EKG interpretation indication drug monitoring. Compared to old EKG from 02/14 2024 Rhythm remains sinus, ventricular rate 75. Nonspecific T-wave abnormality with some mild flattening noted laterally, and inferiorly. QRS remains normal, at 92 milliseconds, QT 390 and QTC 435 Impression: Normal sinus rhythm with nonspecific T-wave abnormality that is unchanged from previous.
== END 2024-07-22 23:59 | disposition home or self-care (01) ==
LOC: CCIC 08:15
PROVIDERS: Clinical Nurse Specialist; PCP Family Medicine; Referring Provider Family Medicine; Visit Provider Internal Medicine Hematology & Oncology
DX: C34.31 Malignant neoplasm of lower lobe, right bronchus or lung (principal); C79.51 Secondary malignant neoplasm of bone; R10.9 Unspecified abdominal pain
CPT/HCPCS: 36415; 70553; 76882; 80053; 84443; 85025; 96372; 96375; 96376; 96409; 99211; 99214; 99215; G0463; A9575; J1100; J2469; J3420; J7030; J7050; J9305

== ENCOUNTER 2024-08-02 13:05 | Outpatient (CLI) | payer OTHER, SELFPAY ==
--- NOTE | 2024-08-02 14:00 | CRLHL7_ITS ---
For Patients: As a result of the Century Cures Act, medical imaging exams and procedure reports are released immediately into your electronic medical record. You may view this report before your referring provider. If you have questions, please contact your health care provider. EXAM: FDG PET-CT Skull Base to Thighs CLINICAL INFORMATION: 59-year-old man with history of lung cancer. Restaging. TECHNIQUE: Radiopharmaceutical: 18F-fluorodeoxyglucose (18F-FDG) Dose: 13.47 MilliCurie. Blood glucose: 86 mg/dL. Image acquisition: At approximately 60 minutes following IV tracer administration via a right hand vein, positron emission tomography was performed from the skull base through the mid thigh. Non-contrast low-dose helical CT imaging was performed over the same range without breath-hold for attenuation correction of PET images and anatomic correlation; it is neither sufficient, nor should it be substituted for diagnostic purposes. COMPARISON: FDG PET-CT 05/24/2024 FINDINGS: Mediastinal blood pool FDG uptake: SUVMax 3.3 (Image 102) Liver background parenchymal FDG uptake: SUVMax 4.3 (Image 131) PET Findings: Similar posttreatment changes in the left lower lobe SUVMax 2.9 (image 111), previously SUV max 2.7. No abnormal FDG avid lymphadenopathy. No abnormal FDG uptake in the visualized skeleton. Diffuse bowel loop uptake likely secondary to metformin. Tracer uptake elsewhere is physiologic. Non-PET findings: Partial opacification of left maxillary sinus. Right middle lobectomy. Coronary artery calcifications. Atherosclerotic calcifications of the thoracic and abdominal aorta. Cardiomegaly. Sequela of granulomatous disease. Prostatomegaly. Multilevel degenerative changes in the spine. IMPRESSION: 1. Similar posttreatment changes in the left lower lobe of the lung. 2. No evidence of metabolically active malignancy. Dictated by Jhon Cheatham MD @ 08/06/2024 8:37:20 PM (Electronically Signed)
== END 2024-08-02 13:06 | disposition home or self-care (01) ==
LOC: RAD 13:07
PROVIDERS: PCP Family Medicine; Visit Provider Internal Medicine Hematology & Oncology
DX: C34.11 Malignant neoplasm of upper lobe, right bronchus or lung (principal)
CPT/HCPCS: 78815; A9552

== ENCOUNTER 2024-08-14 12:33 | Outpatient (CLI) | payer OTHER, SELFPAY ==
--- NOTE | 2024-08-14 13:00 | CRLHL7_ITS ---
For Patients: As a result of the Century Cures Act, medical imaging exams and procedure reports are released immediately into your electronic medical record. You may view this report before your referring provider. If you have questions, please contact your health care provider. INDICATION: Lung cancer. TECHNIQUE: Multisequence multiplanar MRI of the brain prior to and following administration of 20 cc Dotarem gadolinium-based intravenous contrast. COMPARISON: MRI brain dated 05/29/2024. FINDINGS: No evidence of acute ischemia. No interval change in scattered foci of T2 prolongation within the white matter of both cerebral hemispheres. No focus of abnormal susceptibility artifact. No focus of new or abnormal suspicious enhancement. The ventricles are unchanged in size. There is similar mild diffuse parenchymal volume loss. Normal calvarial bone marrow signal intensity. Symmetric globes. Mild scattered paranasal sinus mucosal thickening and small left maxillary postinflammatory mucous retention cyst. IMPRESSION: 1. No abnormal enhancement or evidence of intracranial metastasis. 2. Similar mild diffuse parenchymal volume loss. 3. Similar scattered foci of T2 prolongation within the supratentorial white matter, nonspecific, differential for which includes chronic small vessel ischemic disease or chronic demyelinating plaques. Dictated by Jacob Villa MD @ 08/15/2024 2:53:46 PM (Electronically Signed)
== END 2024-08-14 12:34 | disposition home or self-care (01) ==
LOC: MRI 12:34
PROVIDERS: PCP Family Medicine; Visit Provider Internal Medicine Hematology & Oncology
DX: C34.90 Malignant neoplasm of unspecified part of unspecified bronchus or lung (principal)
CPT/HCPCS: 70553; A9575

== ENCOUNTER 2024-11-15 07:07 | Outpatient (CLI) | payer OTHER, SELFPAY ==
--- NOTE | 2024-11-15 07:15 | CRLHL7_ITS ---
For Patients: As a result of the Century Cures Act, medical imaging exams and procedure reports are released immediately into your electronic medical record. You may view this report before your referring provider. If you have questions, please contact your health care provider. INDICATION: Staging exam. TECHNIQUE: Brain MRI with and without contrast. 20 cc of Dotarem gadolinium based intravenous contrast administered. COMPARISON: Brain MRI from 08/14/2024. FINDINGS: No evidence of acute ischemia. No evidence of acute or chronic intracranial blood products. No mass or pathologic intracranial enhancement. Patchy FLAIR hyperintensities within the supratentorial white matter and brainstem, typical for chronic microvascular ischemic change. Mild generalized parenchymal volume loss. No hydrocephalus. The pituitary gland, parasellar structures and optic chiasm are normal. All the major intracranial vascular structures demonstrate normal flow-related signal. The orbital contents are normal. No calvarial or skull base marrow signal abnormality. A left maxillary sinus retention cyst. Mild paranasal sinus mucosal thickening. No extracranial soft tissue findings. IMPRESSION: 1. No acute infarction or other acute intracranial pathology. 2. No evidence of intracranial metastatic disease. 3. Mild chronic microvascular ischemic changes and mild generalized parenchymal volume loss. Dictated by Rufino Rebolledo MD @ 11/16/2024 7:57:33 AM (Electronically Signed)
== END 2024-11-15 07:08 | disposition home or self-care (01) ==
LOC: MRI 07:08
PROVIDERS: PCP Family Medicine; Visit Provider Internal Medicine Hematology & Oncology
DX: C34.90 Malignant neoplasm of unspecified part of unspecified bronchus or lung (principal); I67.82 Cerebral ischemia
CPT/HCPCS: 70553; A9575

== ENCOUNTER 2024-11-22 14:09 | Outpatient (CLI) | payer OTHER, SELFPAY ==
--- NOTE | 2024-11-22 15:00 | CRLHL7_ITS ---
For Patients: As a result of the Century Cures Act, medical imaging exams and procedure reports are released immediately into your electronic medical record. You may view this report before your referring provider. If you have questions, please contact your health care provider. EXAM: FDG PET-CT Skull Base to Thighs CLINICAL INFORMATION: 59-year-old man with history of lung cancer. Restaging. TECHNIQUE: Radiopharmaceutical: 18F-fluorodeoxyglucose (18F-FDG) Dose: 9.97 MilliCurie. Blood glucose: 130 mg/dL. Image acquisition: At approximately 60 minutes following IV tracer administration via a left hand vein, positron emission tomography was performed from the skull base through the mid thigh. Non-contrast low-dose helical CT imaging was performed over the same range without breath-hold for attenuation correction of PET images and anatomic correlation; it is neither sufficient, nor should it be substituted for diagnostic purposes. COMPARISON: FDG PET-CT 08/02/2024 FINDINGS: Mediastinal blood pool FDG uptake: SUVMax 3.2 (Image 77) Liver background parenchymal FDG uptake: SUVMax 4.0 (image 111) PET Findings: No substantial change of posttreatment changes in the left lower lobe of the lungs SUVMax 2.7 (image 88), previously SUVMax 2.9. No abnormal FDG avid lymphadenopathy. No abnormal FDG uptake in the visualized skeleton. Diffuse bowel loop uptake likely secondary to metformin. Tracer uptake elsewhere is physiologic. Non-PET findings: Partial opacification of left maxillary sinus. Scattered subsegmental atelectasis. Right middle and lower lobectomy. Coronary artery calcifications. Atherosclerotic calcifications of the thoracic and abdominal aorta. Cardiomegaly. Sequela of granulomatous disease. Prostatomegaly. Multilevel degenerative changes in the spine. IMPRESSION: 1. Similar posttreatment changes in the left lower lobe of the lung. 2. No evidence of metabolically active malignancy. Dictated by Jhon Cheatham MD @ 11/26/2024 5:57:03 AM (Electronically Signed)
== END 2024-11-22 14:10 | disposition home or self-care (01) ==
LOC: RAD 14:10
PROVIDERS: PCP Family Medicine; Visit Provider Internal Medicine Hematology & Oncology
DX: C34.11 Malignant neoplasm of upper lobe, right bronchus or lung (principal)
CPT/HCPCS: 78815; A9552

== ENCOUNTER 2025-01-16 08:00 | Outpatient (RCR) | payer OTHER, SELFPAY ==
[2024-08-02 13:36] LABS: Hematocrit* 38.8 % (37.0-53.0); Hemoglobin* 13.2 gm/dL (13.5-17.5); Immature Granulocytes Pct Auto 0.2 %; Mean Corpuscular HGB Conc 34 gm/dL (32-36); Mean Corpuscular Hemoglobin 34 pg (26-34); Mean Corpuscular Volume 100 fL (80-100); RDW Coefficient of Variation % 12.5 % (11.5-15.5); Red Blood Count* 3.90 m/uL (4.30-5.90); White Blood Count* 4.11 K/uL (4.50-11.00)
[2024-08-02 13:38] LABS: Immature Granulocytes Abs Auto 0.00 K/uL (0.00-0.30); Lymphocytes Absolute Auto 0.90 K/uL (0.90-2.90); Slide Review Reflex No
[2024-08-02 13:58] LABS: Chloride* 99 mmol/L (96-114)
[2024-08-02 13:59] LABS: Albumin* 4.3 g/dL (3.3-5.0); Potassium* 3.4 mmol/L (3.6-5.1); Sodium* 134 mmol/L (135-149)
[2024-08-02 14:01] LABS: Alanine Aminotransferase* 18 U/L (4-50); Anion Gap 7 mEq/L (7-15); Aspartate Amino Transferase* 34 U/L (12-35); Blood Urea Nitrogen* 14 mg/dL (7-30); Carbon Dioxide* 28 mmol/L (20-32); Creatinine* 1.4 mg/dL (0.5-1.5); Estimated Glomerular Filt Rate 57 ml/min
[2024-08-02 14:02] LABS: Alkaline Phosphatase* 77 U/L (40-150); Bilirubin Total* 1.0 mg/dL (0.1-1.5); Calcium* 9.2 mg/dL (8.4-10.6); Glucose* 97 mg/dL (60-115); Total Protein* 7.2 g/dL (6.0-8.3)
[2024-09-05 08:24] LABS: Hematocrit* 40.5 % (37.0-53.0); Hemoglobin* 13.6 gm/dL (13.5-17.5); Immature Granulocytes Pct Auto 0.2 %; Mean Corpuscular HGB Conc 34 gm/dL (32-36); Mean Corpuscular Hemoglobin 33 pg (26-34); Mean Corpuscular Volume 99 fL (80-100); RDW Coefficient of Variation % 12.5 % (11.5-15.5); Red Blood Count* 4.08 m/uL (4.30-5.90); White Blood Count* 4.12 K/uL (4.50-11.00)
[2024-09-05 08:26] LABS: Immature Granulocytes Abs Auto 0.00 K/uL (0.00-0.30); Lymphocytes Absolute Auto 0.90 K/uL (0.90-2.90); Slide Review Reflex No
[2024-09-05 08:46] LABS: Albumin* 4.1 g/dL (3.3-5.0); Chloride* 100 mmol/L (96-114); Potassium* 3.8 mmol/L (3.6-5.1); Sodium* 134 mmol/L (135-149)
[2024-09-05 08:49] LABS: Alanine Aminotransferase* 17 U/L (4-50); Alkaline Phosphatase* 94 U/L (40-150); Aspartate Amino Transferase* 32 U/L (12-35); Bilirubin Total* 0.6 mg/dL (0.1-1.5); Blood Urea Nitrogen* 14 mg/dL (7-30); Calcium* 9.3 mg/dL (8.4-10.6); Carbon Dioxide* 28 mmol/L (20-32); Creatinine* 1.3 mg/dL (0.5-1.5); Est. Creatinine Clearance* 55.79; Estimated Glomerular Filt Rate 63 ml/min; Glucose* 103 mg/dL (60-115); Total Protein* 7.1 g/dL (6.0-8.3)
[2024-09-05 08:52] LABS: Anion Gap 6 mEq/L (7-15)
--- NOTE | 2024-09-06 14:16 | ONC.NURNOTE ---
labs noted as stable- reviewed by INSTRUCTIONAL TECHNOLOGY FACILITATOR results called to Kwasi-next lab appt reviewed in Sep- plan to do EKG also
--- NOTE | 2024-10-02 15:27 | ONC.NURNOTE ---
Addendum entered by Liliya Rico RN 10/05/24 14:30: STEVAN approved for Tagrisso through [employer] [facility] until 10/03/2025 Original Note: STEVAN tagreneo 80 mg/ day started on covermymeds
[2024-10-03 08:43] LABS: Hematocrit* 41.6 % (37.0-53.0); Hemoglobin* 14.3 gm/dL (13.5-17.5); Immature Granulocytes Abs Auto 0.01 K/uL (0.00-0.30); Immature Granulocytes Pct Auto 0.2 %; Lymphocytes Absolute Auto 1.00 K/uL (0.90-2.90); Mean Corpuscular HGB Conc 34 gm/dL (32-36); Mean Corpuscular Hemoglobin 33 pg (26-34); Mean Corpuscular Volume 95 fL (80-100); RDW Coefficient of Variation % 12.5 % (11.5-15.5); Red Blood Count* 4.36 m/uL (4.30-5.90); White Blood Count* 4.83 K/uL (4.50-11.00)
[2024-10-03 08:48] LABS: Slide Review Reflex No
[2024-10-03 09:11] LABS: Albumin* 4.1 g/dL (3.3-5.0); Chloride* 100 mmol/L (96-114); Potassium* 3.6 mmol/L (3.6-5.1); Sodium* 135 mmol/L (135-149)
[2024-10-03 09:13] LABS: Blood Urea Nitrogen* 15 mg/dL (7-30); Creatinine* 1.4 mg/dL (0.5-1.5); Est. Creatinine Clearance* 51.80; Estimated Glomerular Filt Rate 57 ml/min
[2024-10-03 09:14] LABS: Alanine Aminotransferase* 17 U/L (4-50); Anion Gap 9 mEq/L (7-15); Aspartate Amino Transferase* 27 U/L (12-35); Calcium* 9.3 mg/dL (8.4-10.6); Carbon Dioxide* 26 mmol/L (20-32); Glucose* 131 mg/dL (60-115); Total Protein* 6.9 g/dL (6.0-8.3)
[2024-10-03 09:48] LABS: Alkaline Phosphatase* 81 U/L (40-150); Bilirubin Total* 0.7 mg/dL (0.1-1.5)
--- NOTE | 2024-10-03 11:05 | ONC.NURNOTE ---
lab results called to Kwasi as stable EKG noted
[2024-11-22 14:30] LABS: Hematocrit* 42.7 % (37.0-53.0); Hemoglobin* 14.5 gm/dL (13.5-17.5); Immature Granulocytes Pct Auto 0.2 %; Mean Corpuscular HGB Conc 34 gm/dL (32-36); Mean Corpuscular Hemoglobin 32 pg (26-34); Mean Corpuscular Volume 95 fL (80-100); RDW Coefficient of Variation % 13.2 % (11.5-15.5); Red Blood Count* 4.50 m/uL (4.30-5.90); White Blood Count* 4.11 K/uL (4.50-11.00)
[2024-11-22 14:34] LABS: Immature Granulocytes Abs Auto 0.00 K/uL (0.00-0.30); Lymphocytes Absolute Auto 1.00 K/uL (0.90-2.90); Slide Review Reflex No
[2024-11-22 14:43] LABS: Albumin* 4.3 g/dL (3.3-5.0); Chloride* 98 mmol/L (96-114); Potassium* 3.8 mmol/L (3.6-5.1); Sodium* 136 mmol/L (135-149)
[2024-11-22 14:46] LABS: Alanine Aminotransferase* 21 U/L (4-50); Alkaline Phosphatase* 79 U/L (40-150); Anion Gap 8 mEq/L (7-15); Aspartate Amino Transferase* 34 U/L (12-35); Bilirubin Total* 1.1 mg/dL (0.1-1.5); Blood Urea Nitrogen* 12 mg/dL (7-30); Carbon Dioxide* 30 mmol/L (20-32); Creatinine* 1.4 mg/dL (0.5-1.5); Est. Creatinine Clearance* 51.80; Estimated Glomerular Filt Rate 57 ml/min; Total Protein* 7.0 g/dL (6.0-8.3)
[2024-11-22 14:47] LABS: Calcium* 9.4 mg/dL (8.4-10.6); Glucose* 96 mg/dL (60-115)
--- NOTE | 2024-12-06 10:43 | ONC.NURNOTE ---
Pt states he is no longer taking furosemide, refill request sent back to john.
[2024-12-20 08:41] LABS: Hematocrit* 42.3 % (37.0-53.0); Hemoglobin* 14.4 gm/dL (13.5-17.5); Immature Granulocytes Abs Auto 0.01 K/uL (0.00-0.30); Immature Granulocytes Pct Auto 0.2 %; Lymphocytes Absolute Auto 1.06 K/uL (0.90-2.90); Mean Corpuscular HGB Conc 34 gm/dL (32-36); Mean Corpuscular Hemoglobin 33 pg (26-34); Mean Corpuscular Volume 96 fL (80-100); RDW Coefficient of Variation % 13.0 % (11.5-15.5); Red Blood Count* 4.39 m/uL (4.30-5.90); White Blood Count* 4.50 K/uL (4.50-11.00)
[2024-12-20 08:46] LABS: Slide Review Reflex No
[2024-12-20 09:04] LABS: Chloride* 100 mmol/L (96-114)
[2024-12-20 09:05] LABS: Albumin* 4.1 g/dL (3.3-5.0); Potassium* 3.6 mmol/L (3.6-5.1); Sodium* 137 mmol/L (135-149)
[2024-12-20 09:08] LABS: Alanine Aminotransferase* 17 U/L (4-50); Alkaline Phosphatase* 107 U/L (40-150); Anion Gap 9 mEq/L (7-15); Aspartate Amino Transferase* 28 U/L (12-35); Bilirubin Total* 0.6 mg/dL (0.1-1.5); Blood Urea Nitrogen* 12 mg/dL (7-30); Calcium* 8.7 mg/dL (8.4-10.6); Carbon Dioxide* 28 mmol/L (20-32); Creatinine* 1.4 mg/dL (0.5-1.5); Est. Creatinine Clearance* 51.80; Estimated Glomerular Filt Rate 57 ml/min; Glucose* 126 mg/dL (60-115); Total Protein* 6.8 g/dL (6.0-8.3)
[2025-01-16 08:34] LABS: Hematocrit* 41.2 % (37.0-53.0); Hemoglobin* 13.9 gm/dL (13.5-17.5); Immature Granulocytes Abs Auto 0.00 K/uL (0.00-0.30); Immature Granulocytes Pct Auto 0.0 %; Lymphocytes Absolute Auto 0.90 K/uL (0.90-2.90); Mean Corpuscular HGB Conc 34 gm/dL (32-36); Mean Corpuscular Hemoglobin 33 pg (26-34); Mean Corpuscular Volume 97 fL (80-100); RDW Coefficient of Variation % 13.1 % (11.5-15.5); Red Blood Count* 4.25 m/uL (4.30-5.90); White Blood Count* 4.13 K/uL (4.50-11.00)
[2025-01-16 08:39] LABS: Slide Review Reflex No
[2025-01-16 08:48] LABS: Albumin* 4.0 g/dL (3.3-5.0); Chloride* 100 mmol/L (96-114); Potassium* 3.6 mmol/L (3.6-5.1); Sodium* 135 mmol/L (135-149)
[2025-01-16 08:51] LABS: Alanine Aminotransferase* 15 U/L (4-50); Alkaline Phosphatase* 83 U/L (40-150); Anion Gap 9 mEq/L (7-15); Aspartate Amino Transferase* 28 U/L (12-35); Bilirubin Total* 0.7 mg/dL (0.1-1.5); Blood Urea Nitrogen* 14 mg/dL (7-30); Calcium* 9.1 mg/dL (8.4-10.6); Carbon Dioxide* 26 mmol/L (20-32); Creatinine* 1.4 mg/dL (0.5-1.5); Est. Creatinine Clearance* 51.80; Estimated Glomerular Filt Rate 57 ml/min; Glucose* 118 mg/dL (60-115); Total Protein* 6.8 g/dL (6.0-8.3)
--- NOTE | 2025-01-17 10:13 | ONC.NURNOTE ---
lab results called to Kwasi as stable
== END 2025-01-29 23:59 | disposition home or self-care (01) ==
LOC: CCIC 08:00
PROVIDERS: PCP Family Medicine; Referring Provider Family Medicine; Visit Provider Internal Medicine Hematology & Oncology
DX: C34.31 Malignant neoplasm of lower lobe, right bronchus or lung (principal); C79.51 Secondary malignant neoplasm of bone
CPT/HCPCS: 36415; 80053; 85025; 93005; 93010; 99214; 99215; G0463